=== PATIENT | male | born 1940 | race African-American/Black ===

== ENCOUNTER → 2016-10-26 | Outpatient (CLI) | payer OTHER ==
[~2016-10-26] VITALS: Ht 177.8 cm; Wt 100.7 kg
[~2016-10-26] MED LIST: ACYCLOVIR 400400 MG PO; ALLOPURINOL 10100 M1 PO; AMARYL1 MG PO; AMARYL2 MG PO; ASPIRIN81 M2 PO; CELECOXIB100 MG PO; CENTRUM SILVER1 EAC1 PO; CENTRUM SILVER1 EAC4 PO; COLACE 100 MG100 MG PO; CRESTOR10 MG PO; CYCLOPHOSPHAMIDE PO; DEXAMETHASONE 44 M1 PO; FLONASE 0.05%50 MCG NASAL; FOLIC ACID1 MG PO; HYDROCODONE; HYDROCODONE-APA1 TA1 PO; LISINOPRIL-HCT1 EAC1 PO; MECLIZINE HCL25 M1 PO; METHOTREXATE; NEURONTIN 300300 M1 PO; NORVASC 5 MG TAB5 MG PO; NORVASC10 MG PO; ONDANSETRON HCL4 M2 PO; PERCOCET 10-321 EACH PO; PRED FORTE 1% EY5 M1 OP; PREDNISONE; PREDNISONE 5 MG5 M1 PO; RHEUMATREX2.5 MG PO; SULFACETAMIDE 115 M1 OP; TRAMADOL 50 MG50 MG PO; ULTRA-LIGHT RO1 EACH MC; VALIUM5 MG PO; XARELTO10 MG PO; XIBROM5 ML OP; ZYMAR5 ML OP
--- NOTE | ~2016-10-26 | HPC ---
[facility] [place] [address] PAIN MANAGEMENT CONSULTATION Name: GRACIELA GRIFFITH Room #: REG KIRBY Knott.#: [id number] Admission: 10/26/16 Attend Phys: Ronni Hargrove MD Discharge: Date of : 38 Report #: [id number] THIS REPORT FOR: //name// CC: Callie Hargrove He was seen on 10/26/[address] Farhan Hargrove. PRIMARY CARE PHYSICIAN: Callie De M.D. FOLLOWUP COMPLAINT: Pain is better for the last 3 months, but now it started up again. FOLLOWUP HISTORY: The patient is a very pleasant 75-year-old gentleman who has been followed in the pain clinic because of lumbar radiculopathy. As you recall, he also has multiple myeloma. He states that his multiple myeloma is stable at this juncture. He has noted no increased bleeding problems of any nature. PHYSICAL EXAMINATION: Blood pressure 132/78, pulse 66, respiratory rate 16, room air saturation 100%. The patient has pain and discomfort in his low back with pain radiating down into the right leg. He rates it as a 5/10 at this juncture. It is more problematic with walking and standing. He notes some improvement when he sits down and rests. He has not fallen since we saw him last. His BMI is 31.9, weight is 100 kilograms. The patient has pain and discomfort as described above. RECOMMENDATIONS: We discussed treatment options with the patient. Risks and benefits of epidural steroid injection were again reviewed. Possible complications were discussed. The patient elects to proceed. PROCEDURE NOTE: The patient was placed in the prone position. Fluoroscopy was used to identify the L5-S1 interspace. This area had been sterilely prepped with Betadine and infiltrated with 0.25% bupivacaine. Total of 80 mg Depo-Medrol, 40 mg triamcinolone and 2 mL of 0.25% bupivacaine was injected. The patient tolerated the procedure well. There were no complications. We would like to thank you for letting us participate in his care. We hope he continues to do well. <ELECTRONICALLY SIGNED> By: Ronni Hargrove MD 11/20/16 1018 [id number] 1959 Ronni Hargrove MD /nt
[2016-10-26 09:06] VITALS: BP 132/78
== END ==
LOC: PAIN 07:01
DX: M54.16 Radiculopathy, lumbar region (principal); C90.00 Multiple myeloma not having achieved remission; I10 Essential (primary) hypertension

== ENCOUNTER → 2017-01-09 | Outpatient (CLI) | payer OTHER ==
[~2017-01-09] VITALS: Ht 177.8 cm; Wt 102.3 kg
[~2017-01-09] MED LIST changes: +ROSUVASTATIN CA20 MG PO
--- NOTE | ~2017-01-09 | HPC ---
[facility] [place] [address] PAIN MANAGEMENT CONSULTATION Name: GRACIELA GRIFFITH Room #: REG KIRBY Knott.#: [id number] Admission: 01/09/17 Attend Phys: Ronni Hargrove MD Discharge: Date of : 39 Report #: [id number] THIS REPORT FOR: //name// CC: Callie Hargrove DATE OF SERVICE: 01/09/2017 PRIMARY CARE PHYSICIAN: Callie De M.D. FOLLOWUP COMPLAINT: "The pain was greater than 50% after the last injection, but has returned". FOLLOWUP HISTORY: The patient is a 76-year-old gentleman who has been followed in the pain clinic because of lumbar radiculopathy. 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 He also has multiple myeloma. He states that his multiple myeloma is stable. He has pain which is radiating down into his left leg. It has limited in his ability to engage in activities of daily living. He has had no new falls. He denies any problems with his bowel or bladder function. He rates his pain as a 7/10. It involves both hips and radiates down into both hips. IMPRESSION: 1. Lumbar radiculopathy, improved with epidural steroid injections. 2. Multiple myeloma, stable per the patient's report. PHYSICAL EXAMINATION: VITAL SIGNS: Blood pressure 108/74, pulse 70, respiratory rate 20 and room air saturation 98%. Height 5 feet 10, weight 102 kilograms. BMI is 32. MUSCULOSKELETAL: He moves from the chair and walks to the procedure room in a slow rate with an antalgic gait. He complains of pain and discomfort in the lower portion of his back and buttocks bilaterally, with some pain down to the left leg. PROCEDURE NOTE: The patient was placed in the prone position. Fluoroscopy was used to identify the L5-S1 interspace. This area had been sterilely prepped with Betadine solution. A 0.25% bupivacaine was infiltrated into this area. A 17-gauge Tuohy with loss of resistance technique was used to gain access to the epidural space. There was no CSF, heme or paresthesia. Total of 80 mg Depo-Medrol, 40 mg triamcinolone and 2 mL of 0.25% bupivacaine was injected. The patient's pain decreased from 7 to 0 at the time of his discharge. He will follow up in the future as needed. [address] [address] PAIN MANAGEMENT CONSULTATION Name: GRACIELA GRIFFITH Room #: REG CLI [facility]#: [id number] Admission: 01/09/17 Attend Phys: Ronni Hargrove MD Discharge: Date of : 39 Report #: [id number] We would like to thank you for letting us participate in his care. We hope he continues to improve. By: [id number] Ronni Hargrove MD /nt
[2017-01-09 08:18] VITALS: BP 108/74
== END | disposition home or self-care (01) ==
LOC: PAIN 08:04
DX: M54.16 Radiculopathy, lumbar region (principal); C90.00 Multiple myeloma not having achieved remission

== ENCOUNTER 2017-03-07 10:06 | Emergency (ER) | payer OTHER ==
[~2017-03-07] VITALS: Ht 177.8 cm; Wt 113.4 kg
--- NOTE | ~2017-03-07 | EKG ---
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1940 Requested By: Trini Garcia Order Number: [id number] MD: Anderson Parikh Measurements Intervals [place] Rate: 68 P: 34 UT: 216 QRS: -23 QRSD: 85 T: 63 QT: 419 QTc: 446 Interpretive Statements Sinus rhythm Borderline prolonged UT interval Borderline left axis deviation Compared to ECG 05/28/2016 15:34:00 Atrial premature complex(es) no longer present Electronically Signed On 03-08-2017 7:56:59 CDT by Anderson Parikh [email or web address] <ELECTRONICALLY SIGNED> By: Anderson Parikh MD, [facility] 03/08/17 0756 [id number] [id number] Anderson Parikh MD, [facility] /EPI
[2017-03-07 10:52] LABS: HEMATOCRIT 42.9 % (42.0-52.0); HEMOGLOBIN 14.2 gm/dL (14.0-18.0); MCH 29.3 pg (26.0-34.0); MCHC 33.1 g/dL (28.0-37.0); MCV 88.5 fL (80.0-100.0); PLATELET COUNT 135 thou/uL (150-400); RBC 4.84 mil/uL (4.50-6.00); RDW 15.2 % (10.5-14.5); WBC 8.1 thou/uL (4.0-11.0)
[2017-03-07 10:58] LABS: MANUAL DIFF YES
[2017-03-07 11:02] LABS: ANION GAP 6 mmol/L (7-16); BUN 10 mg/dL (7-18); CALCIUM 9.3 mg/dL (8.5-10.1); CHLORIDE 109 mmol/L (98-107); CO2 25 mmol/L (21-32); CREATININE 1.2 mg/dL (0.7-1.3); GLUCOSE 97 mg/dL (74-106); POTASSIUM 4.1 mmol/L (3.5-5.1); SODIUM 140 mmol/L (136-145); TROPONIN-I < 0.04 ng/mL (<0.04-0.07)
[2017-03-07 11:15] LABS: ABSOLUTE NEUTROPHILS 3.6 thou/uL (1.4-8.2); TOTAL CELL COUNT 100
[2017-03-07 11:16] LABS: ANISOCYTOSIS 1+
[2017-03-07 12:35] VITALS: BP 128/71
== END 2017-03-07 12:36 | disposition home or self-care (01) ==
LOC: ER 10:06
PROVIDERS: Emergency Medicine
DX: S16.1XXA Strain of muscle, fascia and tendon at neck level, initial encounter (principal); I10 Essential (primary) hypertension; E11.9 Type 2 diabetes mellitus without complications; E78.00 Pure hypercholesterolemia, unspecified; M06.9 Rheumatoid arthritis, unspecified; Z90.79 Acquired absence of other genital organ(s); Z85.46 Personal history of malignant neoplasm of prostate; Z86.73 Personal history of transient ischemic attack (TIA), and cerebral infarction without residual deficits; Z85.79 Personal history of other malignant neoplasms of lymphoid, hematopoietic and related tissues; Z88.8 Allergy status to other drugs, medicaments and biological substances; Z91.041 Radiographic dye allergy status; X58.XXXA Exposure to other specified factors, initial encounter; Y93.89 Activity, other specified; Y92.89 Other specified places as the place of occurrence of the external cause; Y99.9 Unspecified external cause status

== ENCOUNTER → 2017-04-24 | Outpatient (CLI) | payer OTHER ==
[~2017-04-24] VITALS: Ht 177.8 cm; Wt 100.2 kg
[2017-04-24 08:10] VITALS: BP 126/63
== END | disposition home or self-care (01) ==
LOC: PAIN 07:17
DX: M54.16 Radiculopathy, lumbar region (principal); C90.00 Multiple myeloma not having achieved remission; G89.29 Other chronic pain; Z96.659 Presence of unspecified artificial knee joint; Z88.8 Allergy status to other drugs, medicaments and biological substances; Z79.82 Long term (current) use of aspirin; Z79.899 Other long term (current) drug therapy; Z98.890 Other specified postprocedural states

== ENCOUNTER → 2017-05-01 | Outpatient (CLI) | payer OTHER | LOC: RAD 08:44 | DX: C90.00 Multiple myeloma not having achieved remission (principal) ==

== ENCOUNTER → 2017-07-31 | Outpatient (CLI) | payer OTHER ==
[~2017-07-31] VITALS: Ht 170.2 cm; Wt 101.4 kg
[~2017-07-31] MED LIST changes: +DEXAMETHASONE PO; +RESTASIS1 EACH OPHTHALMIC; +REVLIMID25 MG PO; +[UNRECOGNIZED DRUG - OTHER] PO
--- NOTE | ~2017-07-31 | HPC ---
[facility] [place] [address] PAIN MANAGEMENT CONSULTATION Name: GRACIELA GRIFFITH Room #: REG KIRBY EucedaRonKendraRon#: [id number] Admission: 07/31/17 Attend Phys: Ronni Hargrove MD Discharge: Date of : 39 Report #: [id number] THIS REPORT FOR: //name// CC: Callie Hargrove DATE OF SERVICE: 07/31/2017 FOLLOWUP COMPLAINT: "The pain was doing pretty well, but it got worse and is going down into both legs and in the right calf." FOLLOWUP HISTORY: The patient is a 76-year-old gentleman who has been seen in the pain clinic because of lumbar radiculopathy. He has undergone epidural steroid injections. As you recall, he suffers from multiple myeloma. He states that his platelet number was a little low. His count has returned and he has come to the pain clinic for another epidural steroid injection. Overall, he still continues to find significant benefit from these procedures and would like to proceed. Risks and benefits of an epidural steroid injection were again reviewed. Possible complications, which include bleeding, increased muscle soreness, headaches, paresis, muscle trauma, and nerve trauma were discussed. The patient states that his platelets have been deemed adequate, so we will proceed with an epidural steroid injection. IMPRESSION: 1. Lumbar radiculopathy, which improves with epidural steroid injection. 2. Multiple myeloma. At a period of time, his platelets were decreased but now they have stabilized per the patient's report. RECOMMENDATIONS: We will proceed with an epidural steroid injection. PROCEDURE NOTE: The patient was placed in the prone position. Fluoroscopy was used to identify the L5-S1 interspace. This area had been sterilely prepped with Betadine and infiltrated with 0.25% bupivacaine. A total of 80 mg Depo-Medrol, 40 mg triamcinolone and 2 mL of 0.25% bupivacaine was injected. The patient tolerated the procedure well. There were no complications. He remained in the pain clinic for an appropriate amount of time. His pain decreased from a 6 to 0 at the time of discharge. We would like to thank you for letting us participate in his care. We hope he continues to improve. By: [id number] Ronni Hargrove MD /TANIYA
[2017-07-31 09:59] VITALS: BP 119/69
== END | disposition home or self-care (01) ==
LOC: PAIN 07-17 10:59
DX: M54.16 Radiculopathy, lumbar region (principal); G89.29 Other chronic pain; C90.00 Multiple myeloma not having achieved remission; Z96.651 Presence of right artificial knee joint; Z98.890 Other specified postprocedural states; Z88.1 Allergy status to other antibiotic agents; Z79.82 Long term (current) use of aspirin; Z79.899 Other long term (current) drug therapy; Z91.041 Radiographic dye allergy status

== ENCOUNTER → 2017-10-23 | Outpatient (CLI) | payer OTHER ==
[~2017-10-23] VITALS: Ht 177.8 cm; Wt 100.7 kg
--- NOTE | ~2017-10-23 | HPC ---
[facility] [place] [address] [address] [address] PAIN MANAGEMENT CONSULTATION Name: GRACIELA GRIFFITH Room #: REG KIRBY Kristin#: [id number] Admission: 10/23/17 Attend Phys: Ronni Hargrove MD Discharge: Date of : 39 Report #: [id number] THIS REPORT FOR: //name// CC: Callie Hargrove DATE OF SERVICE: 10/23/2017 FOLLOWUP COMPLAINT: "I have finished my chemotherapy and would like to get another injection." FOLLOWUP HISTORY: The patient is a very pleasant 76-year-old gentleman who has been followed in the pain clinic because of lumbar radiculopathy. He has undergone epidural steroid injections over the years. He finds that these have been quite helpful. He states that he underwent some chemotherapy since we saw him last. He did note some worsening of his pain. He had some difficulty walking and could not walk further than a few car length. At this juncture, he has noted that since his chemotherapy is completed he is having less pain, he is able to do more activities, but feels that another epidural steroid injection would be beneficial. After he gets the injections, he notes that his pain improved significantly. He is able to engage in activities with a lot less discomfort. He rates his pain as a 5/8 at this juncture. He is having pain in his lower back down into both hips and as you recall has undergone lumbar surgery in the past. ALLERGIES: LIPITOR, IODINE. PHYSICAL EXAMINATION: VITAL SIGNS: Blood pressure 133/94, pulse 78, respiratory rate 14, room air saturation 97%. Height 5 feet 10 inches, weight 222 pounds, BMI 31. The patient has not fallen since we saw him last. HEENT: Eyes are nonicteric. Extraocular muscles intact. NECK: Good range of motion, no JVD. HEART: Regular rate. ABDOMEN: Nontender. BACK: The patient stands with a slight forward lean. No step-off changes are noted in the back area. No paravertebral discomfort. EXTREMITIES: The patient notes pain and discomfort radiating down the lower portion of his back and into both hips bilaterally. It is in the L5-S1 lumbar distribution. Muscle strength is judged to be 5/5 for the major muscle groups of the lower extremity. The patient denies any bleeding episodes or problems with increased bleeding since his multiple myeloma treatment. CURRENT MEDICATIONS: Restasis ophthalmic drops, Ultram 50 mg q.6 hours p.r.n., aspirin 81 mg, rosuvastatin 20 mg, Norvasc 10 mg, allopurinol 100 mg, [place] [address] PAIN MANAGEMENT CONSULTATION Name: GRACIELA GRIFFITH Room #: REG [facility] Kristin#: [id number] Admission: 10/23/17 Attend Phys: Ronni Hargrove MD Discharge: Date of : 39 Report #: [id number] lisinopril/hydrochlorothiazide 20/12.5 daily. IMPRESSION: 1. Lumbar radiculopathy which improves with epidural steroid injections. 2. Multiple myeloma. The patient is recovering from a multiple myeloma treatment. Notes that his energy is increasing as well as his activity level is beginning to increase. He is feeling better at this juncture. Rates his pain as a 5/6. RECOMMENDATIONS: We discussed treatment options with the patient. Risks and benefits of an epidural steroid injection were discussed. Possible complications were reviewed. The patient elects to proceed. Complications include but are not limited to infection, increased muscle soreness, headache, bleeding, nerve damage, spinal headache, he would like to proceed. PROCEDURE NOTE: The patient was placed in the prone position. His back was sterilely prepped with a chlorhexidine solution. His L5-S1 area was identified using fluoroscopy using anterior-posterior and lateral viewing. After this area was infiltrated with 0.25% bupivacaine, a 17-gauge Tuohy with loss of resistance technique was used to gain access to the epidural space. There was no CSF, heme or paresthesia. After appropriate placement was noted, a total of 80 mg Depo-Medrol, 40 mg triamcinolone and 2 mL of 0.25% bupivacaine was injected. The patient tolerated the procedure well. The site was observed. There was no bleeding. A Band-Aid was placed. He was then taken to the recovery room where he remained for an appropriate amount of time. He will follow up in the future as needed. He will call us if he has any problems with his medications. We would like to thank you for letting us participate in his care. We hope he continues to improve. <ELECTRONICALLY SIGNED> By: Ronni Hargrove MD 11/15/17 1332 1258 11 Ronni Hargrove MD /TANIYA
[2017-10-23 09:22] VITALS: BP 131/94
== END | disposition home or self-care (01) ==
LOC: PAIN 06:54
DX: M54.16 Radiculopathy, lumbar region (principal); C90.00 Multiple myeloma not having achieved remission; Z79.82 Long term (current) use of aspirin; Z79.899 Other long term (current) drug therapy; Z88.8 Allergy status to other drugs, medicaments and biological substances; Z91.041 Radiographic dye allergy status; G89.29 Other chronic pain

== ENCOUNTER → 2018-04-18 | Outpatient (CLI) | payer OTHER ==
[~2018-04-18] VITALS: Ht 177.8 cm; Wt 95.7 kg
--- NOTE | ~2018-04-18 | HPC ---
[facility] [address] [address] PAIN MANAGEMENT CONSULTATION Name: GRACIELA GRIFFITH Room #: REG KIRBY EucedaRonKendra.#: [id number] Admission: 04/18/18 Attend Phys: Ronni Hargrove MD Discharge: Date of : 39 Report #: [id number] THIS REPORT FOR: //name// CC: Callie Hargrove DATE OF SERVICE: 04/18/2018 FOLLOWUP COMPLAINT: "Things are going pretty good with multiple myeloma. I noticed that my pain has returned in the back and shooting down into my leg." FOLLOWUP HISTORY: The patient is a very pleasant 77-year-old gentleman who has been followed in the pain clinic. As you recall, he has undergone a number of epidural steroid injection in the past. Notes that it is greater than 2 months of pain relief after the last injection. At this juncture, he has noted some return of pain. He is less active. States that he watches his car sitting on a rolling chair like item. Continues to have pain, which is problematic. Has some problems with getting comfortable. Denies any change in his bowel or bladder dysfunction. Has not noticed any increased bleeding problems. States that he has followed up with his primary and that his multiple myeloma is going reasonably well. He would like to proceed with an epidural steroid injection and gleaned benefit from this at this juncture. ALLERGIES: LIPITOR, IODINE. MEDICATIONS: Ophthalmic drops, Restasis into each eye b.i.d., tramadol 50 mg q.6 hours p.r.n., aspirin 81 mg, rosuvastatin 20 mg daily, amlodipine 10 mg, allopurinol 100 mg, lisinopril/hydrochlorothiazide 20/12.5. PAIN CLINIC ASSESSMENT: 1. 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 The patient is not being treated for rheumatoid arthritis. 2. Height 5 feet 10 inches, weight 211 pounds, BMI is 30. 3. Vital signs: Blood pressure 141/73, pulse 69, respiratory rate 16, room air saturations 100%. 4. Pain intensity: 10. 5. Fall risk. The patient has not fallen in the last 3 months. 6. Blood thinning. The patient is not on a blood thinning medication. 7. History of hypertension. The patient is being treated for hypertension. 8. Opioid therapy greater than 6 weeks. The patient is using tramadol to help with his pain control. 9. Risk assessment tool: The patient has low score in regards to use of opioid medication. 10. Functional assessment tool. 11. Recreational drug use. The patient denies use of tobacco. 12. Alcohol use. The patient denies use of alcoholic beverages. Recreational [address] [address] PAIN MANAGEMENT CONSULTATION Name: GRACIELA GRIFFITH Room #: REG CLI OkKendra.#: [id number] Admission: 04/18/18 Attend Phys: Ronni Hargrove MD Discharge: Date of : 39 Report #: [id number] drug use, the patient denies. PHYSICAL EXAMINATION: GENERAL: The patient is a well-developed, well-nourished black male. He appears his stated age. He is alert and oriented x 3. HEENT: The patient has some redness in the sclerae of his eyes. Has good hearing, wears a hearing aid. Mucous membranes are moist. Head is atraumatic. NECK: Without JVD or adenopathy. Good range of motion. HEART: Regular rate. S1, S2. ABDOMEN: Nontender. BACK: The patient stands and leans slightly forward when walking. No step-off changes are noted in the back area or paravertebral area. Muscle strength in the upper extremity is judged to be 5/5 for the major muscle groups without neurologic changes. Muscle bulk is symmetrical. The patient has pain and discomfort in his lower back with pain radiating down to the left leg in the L5-S1 nerve root distribution. He has muscle strength which is generally felt to be 5/5 for the lower muscles area. Has noted no increased bleeding in regard to his multiple myeloma. IMPRESSION: 1. Lumbar radiculopathy in the L5-S1 area. 2. History of multiple myeloma. 3. History of hypertension. 4. Status post chemotherapy for multiple myeloma. 5. Left hip replacement. RECOMMENDATIONS: We discussed treatment options with the patient. Risks and benefits of an epidural steroid injection were again reviewed. Possible complications were discussed. They include but are not limited to infection, increased muscle soreness, headache, bleeding, worsening of pain, no improvement in pain, paralysis, weakness as a result of the procedure, spinal headache. The patient elects to proceed. PROCEDURE NOTE: The patient was taken to the procedure room. He was assisted in getting on the examination table. He was placed in the prone position. Fluoroscopy using anterior, posterior as well as lateral imaging were used to place the injection. The L5-S1 area on the left was identified. A left paraspinous approach was used. A 0.25% bupivacaine was infiltrated into this area. A 17-gauge Tuohy with loss of resistance technique was used to gain access to the epidural space. There was no CSF, heme or paresthesia. Total of 80 mg Depo-Medrol, 40 mg triamcinolone and 2 mL of 0.25% bupivacaine was injected. The patient tolerated the procedure well. There were no complications. A total of 8 seconds fluoroscopy time was used. The patient's pain decreased from 4 to 2 at the time of discharge. He will follow up in the [facility] [address] [place] [address] PAIN MANAGEMENT CONSULTATION Name: GRACIELA GRIFFITH Room #: REG [facility].#: [id number] Admission: 04/18/18 Attend Phys: Ronni Hargrove MD Discharge: Date of : 38 Report #: [id number] future as needed. We would like to thank you for letting us participate in his care. We hope he continues to improve. By: [id number] Ronni Hargrove MD /nt
[2018-04-18 13:08] VITALS: BP 141/73
== END | disposition home or self-care (01) ==
LOC: PAIN 07:01
DX: M54.16 Radiculopathy, lumbar region (principal); G89.29 Other chronic pain; I10 Essential (primary) hypertension; Z85.79 Personal history of other malignant neoplasms of lymphoid, hematopoietic and related tissues; Z96.642 Presence of left artificial hip joint; Z91.041 Radiographic dye allergy status; Z88.8 Allergy status to other drugs, medicaments and biological substances; Z79.899 Other long term (current) drug therapy

== ENCOUNTER → 2018-09-24 | Outpatient (CLI) | payer OTHER ==
[~2018-09-24] VITALS: Ht 177.8 cm; Wt 97.3 kg
[~2018-09-24] MED LIST changes: +ACYCLOVIR 800800 MG PO; +ASA5UEC PO; +BACTRIM DS TAB1 EACH PO; +DEXAMETHASONE4 MG PO; +REVLIMID15 MG PO; +UNICOMPLEX M TA1 TA1 PO
[2018-09-24 09:16] VITALS: BP 118/57
== END | disposition home or self-care (01) ==
LOC: PAIN 09:02
DX: M54.16 Radiculopathy, lumbar region (principal); Z88.8 Allergy status to other drugs, medicaments and biological substances; Z79.82 Long term (current) use of aspirin; Z79.899 Other long term (current) drug therapy

== ENCOUNTER → 2018-12-05 | Outpatient (CLI) | payer OTHER ==
[~2018-12-05] VITALS: Ht 177.8 cm; Wt 92.1 kg
[~2018-12-05] MED LIST changes: +MEDROLDOSEPACK PO
--- NOTE | ~2018-12-05 | HPC ---
[facility] [address] [place] [address] PAIN MANAGEMENT CONSULTATION Name: GRACIELA GRIFFITH Room #: REG KIRBY KnottRon#: [id number] Admission: 12/05/18 ������������������ Attend Phys: Ronni Hargrove MD Discharge: ������������������ Date of : 39 Report #: [id number] THIS REPORT FOR: //name// CC: Callie Hargrove DATE OF SERVICE: 12/23/2018 CHIEF COMPLAINT: Pain in the left and right low back area down into the legs. HISTORY: The patient is a 78-year-old gentleman who has been followed in the Pain Clinic. He has a history of lumbar radiculopathy. He has had back surgery in the past. He has undergone midline injections at the L5-S1 area to help decrease pain and discomfort, which he has been experiencing in his low back and into his left leg. He returns today indicating that his pain has changed somewhat. He is experiencing pain in the left as well as the right leg in the L4-L5 dermatomal distribution bilaterally. Notes some low back discomfort as well. Rates it as a 5-6/10. There is aching sensation that is exacerbated when he is walking, standing and improves somewhat when he is sitting and at rest. Past injections have been beneficial and he has returned today with the desire to undergo an epidural steroid injection to help quell and decrease the amount of pain and discomfort he is experiencing. ALLERGIES: LIPITOR, IODINE. MEDICATIONS: Ophthalmic drops, Restasis to each eye bilaterally, tramadol 50 mg q. 6 hours, aspirin 81 mg, rosuvastatin 20 mg daily, amlodipine 10 mg and allopurinol 100 mg, lisinopril/hydrochlorothiazide 20/12.5. PAIN CLINIC ASSESSMENT/PQRS: 1. Osteoarthritis. 2. The patient has had a right total hip replacement in 05/2017. He is not being treated for rheumatoid arthritis. 3. Height 5 feet 10 inches, weight 203 pounds, BMI is 29.1. 4. Vital signs: Blood pressure 114/67, pulse 79, respiratory rate 16, room air saturation 100%. 5. Pain intensity 5/6 out of 10. 6. Fall risk. The patient has not fallen in the last 3 months. 7. Blood thinner. The patient is not on a blood thinning medication. 8. Hypertension. The patient is not being treated for hypertension. 9. Opioids greater than 6 weeks, the patient receives his medications from his primary physician. 10. Risk assessment tool, low for opioid use. 11. Functional assessment tool. 12. Recreational drug use. The patient denies use of recreational drugs. 13. Tobacco: The patient denies use of tobacco. [address] [address] PAIN MANAGEMENT CONSULTATION Name: GRACIELA GRIFFITH [id number] Admission: 12/05/18 ������������������ Attend Phys: Ronni Hargrove MD Discharge: ������������������ Date of : 39 Report #: [id number] 14. Alcohol: The patient denies use of alcoholic beverages. PHYSICAL EXAMINATION: GENERAL: The patient is a well-developed, well-nourished black gentleman. His affect is appropriate. Speech is fluent. HEENT: Normocephalic, atraumatic. Extraocular eye muscles intact. Sclerae nonicteric. Mucous membranes are moist. NECK: Without adenopathy or JVD. The patient has slight reddening near the sclerae in his eyes. NECK: Without JVD or adenopathy. Good range of motion. HEART: Regular rate. S1, S2. ABDOMEN: Nontender. BACK: The patient stands leaning forward. Complains of pain and discomfort in the lower portion of his back. Notes worsening of pain after prolonged standing and walking. Notes pain is radiating down into the left as well as a right leg instead of just the left. In the past, the patient has radiated down the L5-S1 dermatomal distribution. Today it is in the L4-L5 dermatomal distribution on the left and the right. Muscle strength generally 5-/5 for the major muscle groups in the lower extremity. No increase in bleeding since we saw him last. Has multiple myeloma history. IMPRESSION: 1. Lumbar radiculopathy, L4-L5 bilaterally. 2. History of multiple myeloma. 3. History of hypertension. 4. Status post chemotherapy and for multiple myeloma. 5. Right hip replacement. RECOMMENDATIONS: We discussed treatment options with the patient. Risks and benefits of a transforaminal epidural steroid injection were discussed with the patient. He has had back surgery in the past. A midline approach is more risky. We will proceed with a transforaminal approach at the left as well as the right L4-L5 dermatomal distribution. The patient elects to proceed. Risks which could include but are not limited to infection, worsening of pain, no improvement in pain, nerve damage, bleeding were discussed and the patient elects to proceed. PROCEDURE NOTE: The patient was taken to the procedure area. He was assisted in getting on the examination table. A pillow was placed under his abdomen to bolster and improve positioning. Fluoroscopy using anterior, posterior as well as lateral viewing were implemented. The patient's back was sterilely prepped with a chlorhexidine solution and allowed to dry. A 25-gauge needle was then used to anesthetize the left as well as the right L4-L5 paraspinous approach. Fluoroscopy using left and right lateral viewing were implemented to place the 20 gauge spinal needle on the left at the L4-L5 dermatomal distribution as well as the right L4-L5 dermatomal distribution. Aspiration was negative. A total [facility] [address] [place] [address] PAIN MANAGEMENT CONSULTATION Name: GRACIELA GRIFFITH [facility] [id number] Admission: 12/05/18 ������������������ Attend Phys: Ronni Hargrove MD Discharge: ������������������ Date of : 39 Report #: [id number] of 80 mg Depo-Medrol with 2 mL of 0.25% bupivacaine infiltrated in this area was undertaken. The patient tolerated the procedure well. There were no complications. The patient's pain decreased to 0 at the time of discharge. He will follow up in the future as needed. We would like to thank you for letting us participate in his care. We hope he continues to improve. ��������������������������������������������� ���������������������������������������� By: ��������������������������������������������� [id number] Ronni Hargrove MD /nt
[2018-12-05 09:15] VITALS: BP 114/67
--- NOTE | 2018-12-05 09:41 | NUR ---
Pain Clinic Assessment: 1. History of Osteoarthritis: 05/18/17 RIGHT TKR SPINE History of Rheumatoid Arthritis: 2. Height: 5 ft. 10 in. 177.8 cm. Weight: 203.0 lb. oz. 92.080 kg. Patient's BMI: 29.1 3. Vital Signs: BP: 114/67 Pulse: 79 Resp: 16 Temp: 02 Sat: 100 ECG Mon: 4. Pain Intensity: 5-6 5. Fall Risk: Dizziness: N Needs help standing or walking: N Fallen in the last 3 months: N Fall risk comments: 6. Patient on Blood Thinner: None 7. History of Hypertension: Y 8. Opioid Therapy greater than 6 weeks: N Opiate Contract Signed: 9. Risk Assessment Tool Provided: 10. Functional Assessment Tool: 11. Recreational Drug Use: Never Drug Type: Tobacco Use: Never Smoker Tobacco Type: Amount or Packs/day: How Many Years: Alcohol Use: No Frequency: Quant:
== END | disposition home or self-care (01) ==
LOC: PAIN 07:19
DX: M54.16 Radiculopathy, lumbar region (principal); G89.29 Other chronic pain; I10 Essential (primary) hypertension; Z85.79 Personal history of other malignant neoplasms of lymphoid, hematopoietic and related tissues; Z96.641 Presence of right artificial hip joint; Z98.890 Other specified postprocedural states; Z79.899 Other long term (current) drug therapy; Z91.041 Radiographic dye allergy status; Z88.8 Allergy status to other drugs, medicaments and biological substances; Z96.651 Presence of right artificial knee joint

== ENCOUNTER → 2018-12-19 | Outpatient (CLI) | payer OTHER ==
[~2018-12-19] VITALS: Ht 177.8 cm; Wt 89.0 kg
--- NOTE | ~2018-12-19 | HPC ---
[facility] [address] [place] [address] PAIN MANAGEMENT CONSULTATION Name: GRACIELA GRIFFITH Room #: REG KIRBY Knott.#: [id number] Admission: 12/19/18 ������������������ Attend Phys: Ronni Hargrove MD Discharge: ������������������ Date of : 39 Report #: [id number] THIS REPORT FOR: //name// CC: Callie Hargrove DATE OF SERVICE: 12/19/2018 PRIMARY CARE PHYSICIAN: Callie De MD CHIEF COMPLAINT: Pain in the legs, which feel heavy. HISTORY OF PRESENT ILLNESS: The patient is a very pleasant 78-year-old who has been followed in the pain clinic in the past because of chronic low back pain. He has undergone epidural steroid injections. They generally have been quite beneficial. As you may recall, he suffers from multiple myeloma. States that things are going reasonably well from that point of view. He has not noticed any excessive bleeding. Return to the pain clinic today with complaints of some pain in the legs. States that the low back pain after the last injection improved, but continues to have some pain and has a perception of some weakness in his lower extremities. He has returned today with the desire to undergo treatment. The patient underwent transforaminal epidural steroid injections at the left and right L4-L5 dermatomal distribution on 12/05/2018. Again, this decreased his pain and discomfort, but continues to have some discomfort with weakness perception in his legs. ALLERGIES: LIPITOR, IODINE. CURRENT MEDICATIONS: Ophthalmic drops, Restasis in each eye bilaterally, tramadol 50 mg q.6 hours p.r.n., aspirin 81 mg, rosuvastatin 20 mg daily, amlodipine 10 mg, allopurinol 100 mg, lisinopril/hydrochlorothiazide 20/12.5. PAIN CLINIC ASSESSMENT AND PQRS: 1. History of osteoarthritis. The patient has some arthritic changes and has had right total hip replacement. The patient is not being treated for rheumatoid arthritis. 2. Height 5 feet 10 inches, weight 196 pounds, BMI is 28.2. 3. Pain intensity 1 while sitting, 6 while walking. 4. Vital Signs: Blood pressure 128/58, pulse 60, respiratory rate 14, room air saturation 100%. 5. Fall risk. The patient has not fallen in the last 3 months. 6. Blood thinner. The patient is not on a blood thinning medication. 7. Hypertension. The patient is being treated for hypertension. 8. Opioids greater than 6 weeks. 9. [place] [address] PAIN MANAGEMENT CONSULTATION Name: GRACIELA GRIFFITH Room #: REG [facility]#: [id number] Admission: 12/19/18 ������������������ Attend Phys: Ronni Hargrove MD Discharge: ������������������ Date of : 39 Report #: [id number] 10. Functional assessment tool. 11. Recreational drug use. The patient denies use of recreational drugs. 12. Tobacco: The patient has never smoked. 13. Alcohol: The patient denies frequent use of alcoholic beverages. PHYSICAL EXAMINATION: GENERAL: The patient is a very pleasant, well-nourished, black male. Appears his stated age. He is alert and oriented x 3. His affect is appropriate. Speech is fluent. HEENT: Normocephalic, atraumatic. Extraocular eye muscles intact. Sclerae are nonicteric. There is some redness. Mucous membranes are moist. Head is atraumatic. NECK: Without JVD or adenopathy. Good range of motion. HEART: Regular rate. S1, S2. ABDOMEN: Nontender. Bowel sounds present. BACK: The patient stands with a slightly forward lean while walking. No step-offs are noted in the back area or paravertebral area. Muscle strength in the lower extremities judged to be 5- for the major muscle groups in the lower extremity. The patient has a perception of some weakness in the lower extremities. IMPRESSION: 1. History of lumbar radiculopathy in the L5-S1 dermatomal area, improved after transforaminal epidural steroid injections on 12/05/2018. 2. History of multiple myeloma. 3. History of hypertension. 4. Status post chemotherapy for multiple myeloma. 5. Right total hip replacement on 05/18/2017. 6. Cholecystectomy. RECOMMENDATIONS: We discussed treatment options with the patient. At this juncture, he has recently undergone an injection with steroids. At this point, we will try a Medrol Dosepak. A script for this medication has been provided with the patient. He will also call us if his pain continues to be problematic. We will consider changes to his medications. We would like to thank you for letting us participate in his care. We hope he continues to improve. ��������������������������������������������� ���������������������������������������� By: ��������������������������������������������� [id number] Ronni Hargrove MD /TANIYA
[2018-12-19 13:14] VITALS: BP 128/58
--- NOTE | 2018-12-19 13:37 | NUR ---
Pain Clinic Assessment: 1. History of Osteoarthritis: 05/18/17 RIGHT TKR SPINE History of Rheumatoid Arthritis: 2. Height: 5 ft. 10 in. 177.8 cm. Weight: 196.2 lb. oz. 88.996 kg. Patient's BMI: 28.2 3. Vital Signs: BP: 128/58 Pulse: 60 Resp: 14 Temp: 02 Sat: 100 ECG Mon: 4. Pain Intensity: 1 SITTING 6 WALKING 5. Fall Risk: Dizziness: Y Needs help standing or walking: N Fallen in the last 3 months: N Fall risk comments: 6. Patient on Blood Thinner: None 7. History of Hypertension: Y 8. Opioid Therapy greater than 6 weeks: N Opiate Contract Signed: 9. Risk Assessment Tool Provided: 10. Functional Assessment Tool: 11. Recreational Drug Use: Never Drug Type: Tobacco Use: Never Smoker Tobacco Type: Amount or Packs/day: How Many Years: Alcohol Use: No Frequency: Quant:
== END ==
LOC: PAIN 06:47
DX: M79.604 Pain in right leg (principal); M79.605 Pain in left leg; M54.5 Low back pain; G89.29 Other chronic pain; I10 Essential (primary) hypertension; Z88.8 Allergy status to other drugs, medicaments and biological substances; Z79.899 Other long term (current) drug therapy; Z96.641 Presence of right artificial hip joint; Z90.49 Acquired absence of other specified parts of digestive tract; Z79.891 Long term (current) use of opiate analgesic

== ENCOUNTER → 2019-02-25 | Outpatient (CLI) | payer OTHER ==
[~2019-02-25] VITALS: Ht 177.8 cm; Wt 89.4 kg
--- NOTE | ~2019-02-25 | HPC ---
[facility] [place] [address] PAIN MANAGEMENT CONSULTATION Name: GRACIELA GRIFFITH Room #: REG KIRBY Nikos.#: [id number] Admission: 02/25/19 ������������������ Attend Phys: Ronni Hargrove MD Discharge: ������������������ Date of : 39 Report #: [id number] THIS REPORT FOR: //name// CC: Callie Hargrove DATE OF SERVICE: 02/25/2019 CHIEF COMPLAINT: "I am having pain down in my back like I did before I had the surgery." HISTORY OF PRESENT ILLNESS: The patient is a very pleasant 78-year-old gentleman who has been followed in the Pain Clinic. He has chronic lumbar pain. He has undergone lumbar surgery. This was because of spinal stenosis. He is still having pain, which is quite problematic. He underwent a transforaminal epidural steroid injection at the L4-L5 areas on the left and right at the last visit. He feels that pain has quieted down. He is having pain that is radiating down in the posterior portion of his legs and in the past epidural steroid injections have been beneficial. He would like to proceed today with another injection in the affected area of L5-S1. He is not experiencing any excessive bleeding. As you may recall, he suffers from multiple myeloma. At this juncture, he is reasonably stable. ALLERGIES: LIPITOR, IODINE. CURRENT MEDICATIONS: Ophthalmic drops, Restasis each eye bilaterally, tramadol 50 mg q. 6 hours p.r.n., aspirin 81 mg, rosuvastatin 20 mg, amlodipine 10 mg, allopurinol 100 mg, lisinopril/hydrochlorothiazide 20/12.5. PAIN CLINIC ASSESSMENT/PQRS: 1. History of osteoarthritis. The patient has some arthritic changes in his right hip. He has had a right hip replacement. He is not being treated for rheumatoid arthritis. 2. Height 5 feet 10 inches, weight 197 pounds, BMI is 28.3. 3. Vital Signs: Blood pressure 126/65, pulse 66, respiratory rate 16, room air saturation 100%. 4. Pain intensity 11/23. 5. Fall risk. The patient has not fallen in the last 3 months. 6. Blood Thinner. The patient is not on a blood thinning medication. 7. Hypertension. The patient is being treated for hypertension. 8. Opioids greater than 6 weeks. 9. Risk assessment tool, low for opioid use. 10. Functional assessment tool, . 11. Recreational drug use. The patient denies use of recreational drugs. 12. Tobacco: The patient has never smoked. 13. Alcohol: The patient denies use of alcoholic beverages. [address] [address] PAIN MANAGEMENT CONSULTATION Name: GRACIELA GRIFFITH [facility] [id number] Admission: 02/25/19 ������������������ Attend Phys: Ronni Hargrove MD Discharge: ������������������ Date of : 39 Report #: [id number] PHYSICAL EXAMINATION: GENERAL: The patient is a well-developed, well-nourished black male, appears his stated age. He is alert and oriented x 3. His affect is appropriate. Speech is fluent. HEENT: Normocephalic, atraumatic. Extraocular eye muscles intact. Sclerae slight redness in the sclera area. Mucous membranes are moist. Head is atraumatic. NECK: Without JVD or adenopathy. Good range of motion. HEART: Regular rate. S1, S2. LUNGS: Clear to auscultation. ABDOMEN: Nontender. Bowel sounds present. BACK: The patient walks in a slightly forward leaning walk. No step-offs are noted. A well-healed area in the lumbar area of his back, status post low back surgery. The patient complains of pain and discomfort radiating down the L4-L5 dermatomal distribution of his legs. The patient has a perception of heaviness in his legs. Pain intensity is 1 while sitting, rise to a level 6 when walking. IMPRESSION: 1. History of lumbar radiculopathy in the L4-L5 dermatomal area improved after epidural steroid injections in the past. The patient would like to proceed with another L4-L5 injection. 2. History of multiple myeloma. 3. History of hypertension. 4. Status post chemotherapy for multiple myeloma. 5. Right total hip replacement 05/18/2017. 6. Cholecystectomy. RECOMMENDATIONS: We discussed treatment options with the patient. Risks and benefits of an epidural steroid injection were again reviewed. Possible complications of the procedure were discussed. They include but are not limited to infection, worsening of pain, no improvement in pain. Overall, the patient feels that his back continues to be problematic. He is not sure that has gained significant improvement since his back surgery. He is having pain that is radiating down into both legs. In the past, epidural steroid injections in the L5-S1 area were beneficial and he would like to proceed with this today. He has had no complication from the previous injections. These were performed at the L4-L5 area on the left and the right. Pain in the L4-L5 area has improved since that injection at the last visit. He would like to proceed with another injection and is aware of the possible complications. PROCEDURE NOTE: The patient was taken to the procedure area. He was then assisted in getting on the examination table. His back was sterilely prepped with a Betadine swabbing. A pillow was placed under his abdomen to improve positioning. Fluoroscopy with anterior and posterior as well as lateral viewing were implemented. A 17-gauge Tuohy with loss of resistance technique was used [facility] [address] [place] [address] PAIN MANAGEMENT CONSULTATION Name: GRACIELA GRIFFITH Room #: REG [facility].#: [id number] Admission: 02/25/19 ������������������ Attend Phys: Ronni Hargrove MD Discharge: ������������������ Date of : 39 Report #: [id number] to gain access to the L5-S1 area using a midline approach. There was no CSF, heme or paresthesia. A total of 80 mg Depo-Medrol, 40 mg triamcinolone and 2 mL of 0.25% bupivacaine was then injected. The patient tolerated the procedure well. A total of 11 seconds fluoroscopy time was provided. The patient's pain decreased to 0 at the time of discharge. We hope that he continues to improve. He will call us if he has any concerns. We would like to thank you for letting us participate in his care. We hope he continues to improve. ��������������������������������������������� ���������������������������������������� By: ��������������������������������������������� [id number] Ronni Hargrove MD /zully
[2019-02-25 12:42] VITALS: BP 126/65
--- NOTE | 2019-02-25 12:47 | NUR ---
Pain Clinic Assessment: 1. History of Osteoarthritis: 05/18/17 RIGHT TKR SPINE History of Rheumatoid Arthritis: 2. Height: 5 ft. 10 in. 177.8 cm. Weight: 197.2 lb. oz. 89.449 kg. Patient's BMI: 28.3 3. Vital Signs: BP: 126/65 Pulse: 66 Resp: 16 Temp: 02 Sat: 100 ECG Mon: 4. Pain Intensity: 2 5. Fall Risk: Dizziness: N Needs help standing or walking: N Fallen in the last 3 months: N Fall risk comments: 6. Patient on Blood Thinner: None 7. History of Hypertension: Y 8. Opioid Therapy greater than 6 weeks: N Opiate Contract Signed: 9. Risk Assessment Tool Provided: LOW 10. Functional Assessment Tool: 11. Recreational Drug Use: Never Drug Type: Tobacco Use: Never Smoker Tobacco Type: Amount or Packs/day: How Many Years: Alcohol Use: No Frequency: Quant:
== END | disposition home or self-care (01) ==
LOC: PAIN 07:02
DX: M54.16 Radiculopathy, lumbar region (principal); G89.29 Other chronic pain; I10 Essential (primary) hypertension; Z96.641 Presence of right artificial hip joint; Z90.49 Acquired absence of other specified parts of digestive tract; Z85.89 Personal history of malignant neoplasm of other organs and systems; Z88.8 Allergy status to other drugs, medicaments and biological substances; Z91.041 Radiographic dye allergy status; Z79.899 Other long term (current) drug therapy; Z98.890 Other specified postprocedural states

== ENCOUNTER → 2019-04-22 | Outpatient (CLI) | payer OTHER ==
[~2019-04-22] VITALS: Ht 180.3 cm; Wt 90.4 kg
--- NOTE | ~2019-04-22 | HPC ---
[facility] [address] [place] [address] PAIN MANAGEMENT CONSULTATION Name: GRACIELA GRIFFITH Room #: REG KIRBY Nikos.#: [id number] Admission: 04/22/19 ������������������ Attend Phys: Ronni Hargrove MD Discharge: ������������������ Date of : 39 Report #: [id number] THIS REPORT FOR: //name// CC: Ronni Milner DATE OF SERVICE: 04/22/2019 CHIEF COMPLAINT: Pain injection was helpful at the last time and it has come back and I would like another. HISTORY: The patient is a very pleasant 78-year-old gentleman who has been followed in the pain clinic. As you recall, has had back pain. He has undergone surgery for this. He has a history of spinal stenosis. Still having pain and discomfort. He underwent a transforaminal epidural steroid injection and gleaned benefits from that. He returns today indicating that his pain continues to be problematic. It is radiating down the posterior portion of his back, legs and gleaned benefits from the epidural steroid injection at the L5-S1 area last time. He would like to have another injection. States that his multiple myeloma is stable at this juncture. ALLERGIES: LIPITOR, IODINE. CURRENT MEDICATIONS: Ophthalmic drops, Restasis each eye bilaterally, tramadol 50 mg q. 6 hours, aspirin 81 mg, rosuvastatin 20 mg, amlodipine 10 mg, allopurinol 100 mg, lisinopril/hydrochlorothiazide 20/12.5. PAIN CLINIC ASSESSMENT/PQRS: 1. History of osteoarthritis. The patient has some arthritic changes in his right hip. He has had a right hip replacement. He is not being treated for rheumatoid arthritis. 2. Height 5 feet 11 inches, weight 199 pounds, BMI is 27.8. 3. VITAL SIGNS: Blood pressure 134/61, pulse 66, respiratory rate 16, room air saturation 98%. 4. Pain intensity 12/21. 5. Fall history: The patient has not fallen in the last 3 months. 6. Blood thinner. The patient is not on a blood thinning medication. 7. Hypertension. The patient has been treated for hypertension. 8. Opioids greater than 6 weeks. The patient receives his medication from one source, the pain clinic. 9. Risk assessment tool, low for opioid use. 10. Functional assessment tool, . 11. Recreational drug use. The patient denies. 12. Tobacco: The patient has never smoked. 13. Alcohol: The patient denies frequent use of alcoholic beverages. [facility] [address] [place] [address] PAIN MANAGEMENT CONSULTATION Name: GRACIELA GRIFFITH Room #: REG [facility]#: [id number] Admission: 04/22/19 ������������������ Attend Phys: Ronni Hargrove MD Discharge: ������������������ Date of : 39 Report #: [id number] PHYSICAL EXAMINATION: GENERAL: The patient is a well-developed, well-nourished. Black male. Appears his stated age. He is alert and oriented x 3. His affect is appropriate. Speech is fluent. HEENT: Normocephalic, atraumatic. Extraocular eye muscles intact. There is slight redness in the sclerae. Mucous membranes are moist. NECK: Without adenopathy or JVD. Good range of motion. HEART: Regular rate. S1, S2. LUNGS: Clear to auscultation. ABDOMEN: Nontender. Bowel sounds present. The patient walks with a slight forward lean when ambulating. Complains of pain and discomfort in the lower portion of his back with pain that radiates down the L5-S1 dermatomal distribution today. He has pain in the buttocks and the posterior portion of his leg. Positive straight leg raise on the left. IMPRESSION: 1. History of lumbar radiculopathy, L4-L5 dermatomal distribution improved after epidural steroid injection in the past. 2. The patient has pain and discomfort in the L5-S1 dermatomal distribution today. 3. History of multiple myeloma, stable. 4. History of hypertension. 5. Status post chemotherapy for multiple myeloma. 6. Right total hip replacement 05/18/2017. 7. Cholecystectomy history. RECOMMENDATIONS: We discussed treatment options with the patient. Risks and benefits of an epidural steroid injection were discussed. They include but are not limited to infection, worsening of pain, no improvement in pain, bleeding and the patient elects to proceed. States his multiple myeloma is stable. Does not have any problems with bleeding. We will proceed with an epidural steroid injection. PROCEDURE NOTE: The patient was taken to the procedure area. He was then assisted in getting on examination table. His back was sterilely prepped with Betadine solution. A 0.25% bupivacaine was infiltrated at the L5-S1 area. Aspiration was negative. A 17-gauge Tuohy with loss of resistance technique at the L5-S1 area was then used to gain access to the epidural space. There was no CSF, heme or paresthesia. Total of 80 mg Depo-Medrol, 40 mg triamcinolone and 2 mL of 0.25% bupivacaine was injected. The patient tolerated the procedure well. He remained in the pain clinic for an appropriate amount of time. He will [address] [address] PAIN MANAGEMENT CONSULTATION Name: GRACIELA GRIFFITH Room #: REG KIRBY Knott#: [id number] Admission: 04/22/19 ������������������ Attend Phys: Ronni Hargrove MD Discharge: ������������������ Date of : 39 Report #: [id number] follow up in the future as needed. Total of 13 seconds fluoro time was used. The patient's pain decreased to 0 at the time of discharge. ��������������������������������������������� ���������������������������������������� By: ��������������������������������������������� 1808 [id number] Ronni Hargrove MD /zully
[2019-04-22 08:37] VITALS: BP 134/61
--- NOTE | 2019-04-22 08:44 | NUR ---
Pain Clinic Assessment: 1. History of Osteoarthritis: 05/18/17 RIGHT TKR SPINE History of Rheumatoid Arthritis: 2. Height: 5 ft. 11 in. 180.3 cm. Weight: 199.2 lb. oz. 90.357 kg. Patient's BMI: 27.8 3. Vital Signs: BP: 134/61 Pulse: 66 Resp: 16 Temp: 02 Sat: 98 ECG Mon: 4. Pain Intensity: 3 5. Fall Risk: Dizziness: N Needs help standing or walking: N Fallen in the last 3 months: N Fall risk comments: 6. Patient on Blood Thinner: None 7. History of Hypertension: Y 8. Opioid Therapy greater than 6 weeks: N Opiate Contract Signed: 9. Risk Assessment Tool Provided: LOW 10. Functional Assessment Tool: 11. Recreational Drug Use: Never Drug Type: Tobacco Use: Never Smoker Tobacco Type: Amount or Packs/day: How Many Years: Alcohol Use: No Frequency: Quant:
== END | disposition home or self-care (01) ==
LOC: PAIN 06:53
DX: M54.16 Radiculopathy, lumbar region (principal); Z98.890 Other specified postprocedural states; Z79.899 Other long term (current) drug therapy; Z88.8 Allergy status to other drugs, medicaments and biological substances

== ENCOUNTER → 2019-07-01 | Outpatient (CLI) | payer OTHER ==
[~2019-07-01] VITALS: Ht 177.8 cm; Wt 91.9 kg
--- NOTE | ~2019-07-01 | HPC ---
[facility] [address] [place] [address] PAIN MANAGEMENT CONSULTATION Name: GRACIELA GRIFFITH Room #: REG KIRBY Kristin#: [id number] Admission: 07/01/19 Attend Phys: Ronni Hargrove MD Discharge: Date of : 39 Report #: [id number] THIS REPORT FOR: //name// CC: Ronni Milner DATE OF SERVICE: 07/01/2019 CHIEF COMPLAINT: "Pain has started again in my back and is going down in the usual area." The patient is a 78-year-old gentleman who has been followed in the pain clinic because of chronic pain involving his low back. As you may recall, he has had back surgeries in the past. He continues to have pain, which is problematic. He has undergone epidural steroid injections. He finds that these have been helpful. He has a history of spinal stenosis. He also has a history of multiple myeloma. He states that this is stable. He has not had any increased bleeding problems. He continues to have pain that radiates down the posterior portion of his legs. Left and right are problematic. He has returned today with a desire to undergo another epidural injection. He has found that these have been beneficial. He rates his pain today as a 3 at its best and 8 when it becomes most problematic. He has had no problems with injections in the past. ALLERGIES: LIPITOR AND IODINE. CURRENT MEDICATIONS: Ophthalmic drops, Restasis to each eye, tramadol 50 mg q. 6 hours, aspirin 81 mg, rosuvastatin 20 mg, amlodipine 10 mg, allopurinol 100 mg, lisinopril/hydrochlorothiazide 20/12.5. PAIN CLINIC ASSESSMENT AND PQRS: 1. History of osteoarthritis. The patient has some arthritic changes in his right hip. He has had a right hip replacement. He is not being treated for rheumatoid arthritis. 2. Height 5 feet 10 inches, weight 202 pounds, BMI is 29. 3. Vital Signs: Blood pressure 122/65, pulse 61, respiratory rate 18, room air saturation 99%. 4. Pain intensity 3 at its present level, 8 is the high number. 5. Fall risk. The patient has not fallen in the last 3 months. 6. Blood thinner. The patient is not on a blood thinning medication. 7. Hypertension. The patient is being treated for hypertension. 8. Opioids greater than 6 weeks. The patient receives medication from one source, pain clinic. 9. Risk assessment tool, low for opioids. 10. Functional assessment tool . 11. Recreational drug use. The patient denies. 12. Tobacco: The patient has never smoked. [address] [address] PAIN MANAGEMENT CONSULTATION Name: GRACIELA GRIFFITH Room #: REG [facility]#: [id number] Admission: 07/01/19 Attend Phys: Ronni Hargrove MD Discharge: Date of : 39 Report #: [id number] 13. Alcohol. The patient denies use of alcoholic beverages. PHYSICAL EXAMINATION: GENERAL: The patient is a well-developed, well-nourished black male, appears his stated age. He is alert and oriented x 3. His affect is appropriate. Speech is fluent. HEENT: Normocephalic, atraumatic. Extraocular eye muscles intact. Sclerae nonicteric. Mucous membranes are moist. NECK: Without adenopathy or JVD. ABDOMEN: Nontender. Bowel sounds present. MUSCULOSKELETAL: The patient has a forward lean and walk with some evidence of an antalgic gait. He has pain in the lower portion of his back. Pain continues to radiate down the L5-S1 dermatomal distribution. He has pain in the area of his buttocks. Positive straight leg raise on the left. IMPRESSION: 1. History of lumbar radiculopathy at L4-L5, improved after epidural steroid injection in the past. Pain more problematic today at the L5-S1 area. 2. History of multiple myeloma, stable. 3. History of hypertension. 4. Status post chemotherapy for multiple myeloma. 5. Right total hip replacement on 05/18/2017. 6. Cholecystectomy. RECOMMENDATIONS: We discussed treatment options with the patient. At this juncture, he would like to proceed with another epidural steroid injection. These have proven beneficial in the past. Risks and benefits of the procedure were again discussed. They include but are not limited to infection, worsening pain, no improvement in pain, nerve damage and paralysis. The patient elects to proceed. PROCEDURE NOTE: The patient was taken to the procedure area. He was then assisted in getting on examination table. Fluoroscopy using anterior, posterior as well as lateral viewing were implemented. A pillow was placed under his abdomen to bolster and improve positioning. The patient's back was sterilely prepped with a chlorhexidine solution. A 0.25% bupivacaine was infiltrated at the L5-S1 area. A 17-gauge Tuohy with loss of resistance technique at the L5-S1 area was then advanced into the epidural space. There was no CSF, heme or paresthesia. Total of 80 mg Depo-Medrol, 40 mg triamcinolone and 2 mL of 0.25% bupivacaine was injected. The patient tolerated the procedure well. There were no complications. He will follow up in the future as needed. [address] [address] PAIN MANAGEMENT CONSULTATION Name: GRACIELA GRIFFITH Room #: REG [facility].#: [id number] Admission: 07/01/19 Attend Phys: Ronni Hargrove MD Discharge: Date of : 39 Report #: [id number] We would like to thank you for letting us participate in his care. We hope he continues to improve. By: [id number] Ronni Hargrove MD /nt
[2019-07-01 10:59] VITALS: BP 122/65
--- NOTE | 2019-07-01 10:59 | NUR ---
Pain Clinic Assessment: 1. History of Osteoarthritis: 05/18/17 RIGHT TKR SPINE History of Rheumatoid Arthritis: 2. Height: 5 ft. 10 in. 177.8 cm. Weight: 202.6 lb. oz. 91.899 kg. Patient's BMI: 29.1 3. Vital Signs: BP: 122/65 Pulse: 61 Resp: 18 Temp: 02 Sat: 99 ECG Mon: 4. Pain Intensity: 3, 8 AT IT'S WORST 5. Fall Risk: Dizziness: N Needs help standing or walking: N Fallen in the last 3 months: N Fall risk comments: 6. Patient on Blood Thinner: None 7. History of Hypertension: Y 8. Opioid Therapy greater than 6 weeks: N Opiate Contract Signed: 9. Risk Assessment Tool Provided: LOW 10. Functional Assessment Tool: 11. Recreational Drug Use: Never Drug Type: Tobacco Use: Never Smoker Tobacco Type: Amount or Packs/day: How Many Years: Alcohol Use: No Frequency: Quant:
== END | disposition home or self-care (01) ==
LOC: PAIN 06:59
DX: M54.5 Low back pain (principal); G89.29 Other chronic pain; M54.16 Radiculopathy, lumbar region; I10 Essential (primary) hypertension; Z96.641 Presence of right artificial hip joint; Z90.49 Acquired absence of other specified parts of digestive tract; Z85.79 Personal history of other malignant neoplasms of lymphoid, hematopoietic and related tissues; Z88.8 Allergy status to other drugs, medicaments and biological substances; Z91.041 Radiographic dye allergy status; Z79.899 Other long term (current) drug therapy; Z79.82 Long term (current) use of aspirin

== ENCOUNTER 2019-09-17 21:45 | Inpatient (IN) | payer OTHER ==
[~2019-09-17] VITALS: Ht 182.9 cm; Wt 87.2 kg
[2019-09-17 21:45] VITALS: BP 129/71
[2019-09-17 22:55] LABS: HEMATOCRIT 40.8 % (42.0-52.0); HEMOGLOBIN 13.2 gm/dL (14.0-18.0); MCH 28.3 pg (26.0-34.0); MCHC 32.2 g/dL (28.0-37.0); MCV 87.9 fL (80.0-100.0); RBC 4.65 mil/uL (4.50-6.00); RDW 14.7 % (10.5-14.5); WBC 11.4 thou/uL (4.0-11.0)
[2019-09-17 22:58] LABS: URINE BILIRUBIN NEGATIVE (Negative); URINE BLOOD 2+ (Negative); URINE CLARITY CLEAR; URINE COLOR YELLOW; URINE GLUCOSE-RANDOM* NEGATIVE (Negative); URINE KETONES NEGATIVE (Negative); URINE LEUKOCYTES-REFLEX NEGATIVE (Negative); URINE NITRITE-REFLEX NEGATIVE (Negative); URINE PROTEIN (DIPSTICK) 2+ (Negative); URINE SPECIFIC GRAVITY 1.025 (1.005-1.035); URINE UROBILINOGEN 0.2 E.U./dl (0.2-1.0)
[2019-09-17 22:59] LABS: CALCIUM 9.6 mg/dL (8.5-10.1); CREATININE 2.5 mg/dL (0.7-1.3); POTASSIUM 4.6 mmol/L (3.5-5.1)
[2019-09-17] MEDS ORDERED: NORCO 5-325 TA1 EAC1 PO (23:19)
[2019-09-17 23:21] LABS: SQUAMOUS 0-3 Few /LPF (0-3)
[2019-09-17 23:22] LABS: AMORPHOUS URATES Few /LPF (None Seen); BACTERIA-REFLEX 1-9 Few /HPF (None Seen); CASTS None Seen /LPF (None Seen); MUCUS 0-3 Light strn/LPF (None Seen); URINE RBC 3-10 Few /HPF (0-2); URINE WBC-REFLEX 0-5 Rare /HPF (0-5)
[2019-09-17 23:29] LABS: ABSOLUTE NEUTROPHILS 9.8 thou/uL (1.4-8.2); BASOPHILS 0.1 % (0.0-2.0); EOSINOPHILS 0.1 % (0.0-3.0); LYMPHOCYTES 6.2 % (24.0-44.0); MONOCYTES 6.3 % (1.0-8.0); POLYS 87.3 % (36.0-66.0); WBC 11.2 thou/uL (4.0-11.0)
[2019-09-17 23:35] LABS: ALBUMIN 2.8 g/dL (3.4-5.0); DIRECT BILIRUBIN 0.3 mg/dL (<0.1-0.3); TOTAL BILIRUBIN 0.9 mg/dL (<0.1-1.0); TOTAL PROTEIN 8.3 g/dL (6.4-8.2)
[2019-09-18 06:44] LABS: HEMATOCRIT 35.1 % (42.0-52.0); MCV 85.3 fL (80.0-100.0); RBC 4.12 mil/uL (4.50-6.00); WBC 11.9 thou/uL (4.0-11.0)
[2019-09-18 07:08] VITALS: BP 116/59
[2019-09-18 08:01] LABS: CALCIUM 9.9 mg/dL (8.5-10.1); CREATININE 3.3 mg/dL (0.7-1.3); POTASSIUM 4.2 mmol/L (3.5-5.1)
[2019-09-18 08:15] VITALS: BP 103/65
[2019-09-18 11:50] VITALS: BP 120/48
--- NOTE | 2019-09-18 14:38 | NUR ---
Chart reviewed and case discussed with the care team. Pt in ISO for flu+. He lives with his and was indep prior to admission. He does have a history of CVA and MM. Nursing reports his mobility to be hampered by pain and body aches. Will ask for therapy evals as he improves to determine if hh or rehab maybe indicated. Pt has health insurance coverage and pcp in place for f/u care. will follow along should dc needs arise. No weekend dc anticipated.
[2019-09-18 15:35] VITALS: BP 143/71
--- NOTE | 2019-09-18 18:40 | NUR ---
RECEIVED PT'S CARE AROUND 0800; PT. ON BED; AOX4; DURING ASSESSMENT C/O BACK PAIN WHEN SITTING UP; EDUCATED ABOUT PAIN MANAGEMENT; ST. FEELING PAIN ONLY WHEN MOVING HEAD UP ON BED; ADMISSION PERFORMED; IV MEDICATION STARTED; AM MEDICATION GIVEN; CRITICAL LABS; PHYSICIAN NOTIFIED; ORDERS RECEIVED; HR MONITOR D/C; MS ORDERS; POOR APPETITE THROUGH THE DAY; REQUESTED ENSURE; PHYSICIAN NOTIFIED; CARB CONTROL DIET; NEW ORDERS; REFUSED SECOND STICK TO OBTAIN BLOOD; EDUCATED ABOUT THE NEED OF BLOOD COLLECTION; LACTIC ACID ELEVATED; AGREED WITH WITHRAWN BLOOD; REQUESTED PRN PAIN MEDICATIO LATE ON THE NIGHT; MEDICATION GIVEN; ASSESSMENT CHARGED; FOLLOWING POC; WILL PASS ON REPORT;
[2019-09-18 21:08] VITALS: BP 132/67
[2019-09-19 04:50] VITALS: BP 146/69
[2019-09-19 07:50] VITALS: BP 156/93
--- NOTE | 2019-09-19 08:25 | HC ---
[facility] [place] [address] CONSULTATION Name: GRACIELA GRIFFITH Room #: 205-P [facility] IN M.R.#: [id number] Admission: 09/18/19 Attend Phys: [place] Discharge: Date of : 39 Report #: [id number] THIS REPORT FOR: //name// CC: Ria Milner DATE OF SERVICE: 09/18/2019 REASON FOR CONSULTATION: History of multiple myeloma. 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 He received some form of therapy and then it looks like a repeat bone marrow in about 03/2014 did not show any evidence of bone marrow involvement. He tells me it has been several years since he has been on therapy and is thought to be in remission. He tells me his next appointment with Dr. Jason Perdue is, I believe, in 11/2019. The patient was admitted with a several-day history of severe body aches. He denies any fevers. He did not have any cough or breathing difficulties or diarrhea. He does have chronic back pain and receives steroid injections or at least some type of injection from Dr. Jose Hargrove. He asks if this will need to be delayed next week. I told him probably so, but I will defer to Dr. Hargrove. The patient told me his at home has been healthy, they had a good Thanksgiving and no one was specifically was sick that he can recall. PAST MEDICAL HISTORY: Notable for the history of what appears to be an IgG multiple myeloma from about 2013, possibly in remission though all the charts are unavailable from the outside. Also, history of perhaps some rheumatoid arthritis, hyperlipidemia, hypertension, prostate cancer, glucose intolerance, maybe history of CVA. Also, history of chronic back pain. Also, has a history of total knee replacement, prostatectomy, bunion removal, bilateral cataract surgery in the past. Also, as I mentioned some knee surgery also. SOCIAL HISTORY: He is retired. I do not recall his history of smoking or alcohol, no street drugs. Did have a dog at home. FAMILY HISTORY: Not significant. MEDICATIONS: At this time in the hospital include allopurinol 100 mg daily, [facility] [address] [place] [address] CONSULTATION Name: GRACIELA GRIFFITH Room #: 205-P ADM IN M.R.#: [id number] Admission: 09/18/19 Attend Phys: [place] Discharge: Date of : 39 Report #: [id number] multivitamin with iron daily, aspirin enteric-coated aspirin 325 mg daily, amlodipine 5 daily, insulin on a sliding scale, tramadol 50 mg q. 6 hours p.r.n., IV fluids, he is also on oseltamivir 30 mg at bedtime. PHYSICAL EXAMINATION: VITAL SIGNS: Height is 6 feet in one measurement, another place mentions 5 feet 10 inches, weight is 192 pounds. The patient had a temperature last night of 100.8, most recently 97.8, blood pressure 116/59 with respirations 20, pulse 102. MOOD: He is alert and pleasant. NEUROLOGIC: Face, speech and thought pattern appear to be normal. He is moving extremities. LYMPHATICS: No enlarged lymph nodes in the supraclavicular, cervical, axillary or inguinal region. ABDOMEN: Slightly obese, nontender. No masses. EXTREMITIES: Without clubbing, cyanosis. There is some mild edema. LABORATORY DATA: Here notable for the positive influenza A and influenza B swabs, creatinine 2.5, AST 77, total bilirubin 0.9, ALT 33, total protein 8.3 with an albumin of 2.8. Note that that was before hydration. CPK was 1665. White count is 11.9, hemoglobin 12, MCV 85.3, platelets 349. Differential normal without any mention of metamyelocytes or myelocytes are seen in the past when he was sick, past IgG level in 05/2016 was 2393. Most recent M spike in 05/2016 was not seen. Blood cultures have been negative so far. UA did have some squamous cells and also few bacteria, few white cells. Chest x-ray had a question of mild early pneumonitis versus atelectasis. ASSESSMENT AND PLAN: 1. History of IgG multiple myeloma from 2013 by the patient's report thought to be in remission. We will get records from the chart. We will repeat serum protein electrophoresis here. 2. Influenza A and influenza B. Continue supportive measures including Tamiflu and fluids. 3. Chronic kidney disease stage 3. Creatinine at 2.5, previously followed by Dr. Villarreal. We will need to watch doses of medications and fluid status. 4. Diabetes mellitus/hyperglycemia. Per others, he is currently on insulin sliding scale. 5. History of rheumatoid arthritis per others. 6. Hyperlipidemia per others. 7. Hypertension per others. 8. 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 [facility] [address] [place] [address] CONSULTATION Name: GRACIELA GRIFFITH Room #: 205-P ADM IN M.R.#: [id number] Admission: 09/18/19 Attend Phys: [place] Discharge: Date of : 39 Report #: [id number] 9. History of transient ischemic attack and stroke in the past per others, so he is on aspirin. We will follow and be available. <ELECTRONICALLY SIGNED> By: Santiago Liang MD 09/19/19 0825 [id number] Santiago Liang MD /nt
[2019-09-19 11:40] VITALS: BP 158/79
[2019-09-19 15:30] VITALS: BP 142/81
--- NOTE | 2019-09-19 18:08 | NUR ---
RECEIVED PT'S CARE AROUND 0710; PT. ON BED; AOX4; NO C/O PAIN; REMAINED ABOUT PAIN MANAGEMENT; ST. UNDERSTANDING; PRN PAIN MEDICATION GIVEN WITH AM MEDICATIONS; RE-ASSESSMENT PT. SLEEPING; INSULIN COVER DURING LUNCH; FAMILY & PT. EDUCATED ABOUT THE REASONS OF GETTING INSULIN; ST. UNDERSTANDING; THROUGH THE DAY ABLE TO REST FROM TIME TO TIME; INCREASE URINE OUTPUT THROUGH THE DAY; NC O2 D/C EARLY ON THE MORNING; ABOVE 95% ON RA; ASSESSMENT CHARGED; FOLLOWING POC; WILL PASS ON REPORT;
[2019-09-19 20:15] VITALS: BP 141/73
[2019-09-20 04:04] VITALS: BP 142/71
[2019-09-20 04:49] LABS: ALBUMIN 1.8 g/dL (3.4-5.0); CALCIUM 9.3 mg/dL (8.5-10.1); PHOSPHORUS 3.6 mg/dL (2.5-4.9); POTASSIUM 3.7 mmol/L (3.5-5.1)
[2019-09-20 04:51] LABS: CREATININE 2.3 mg/dL (0.7-1.3)
[2019-09-20 04:58] LABS: HEMOGLOBIN 11.1 gm/dL (14.0-18.0); MCH 28.6 pg (26.0-34.0); MCHC 32.8 g/dL (28.0-37.0); MCV 87.3 fL (80.0-100.0); RBC 3.89 mil/uL (4.50-6.00); WBC 13.7 thou/uL (4.0-11.0)
--- NOTE | 2019-09-20 06:00 | NUR ---
PT AWAKE AND ALERT. A VERY DELIGHTFUL LITTLE GENTLEMAN. REMAINS A MED SURG OVERFLOW. PT VOIDS PER URINAL BUT IS OFTEN TIMES INCONTIENT OF URINE. DENIES PAIN AT PRESENT. WILL CONT TO MONITOR
[2019-09-20 07:50] VITALS: BP 150/73
[2019-09-20 16:50] VITALS: BP 149/68
--- NOTE | 2019-09-20 17:43 | NUR ---
ASSUMED CARE PT SHIFT CHANGE. ASSESSMENT CHARTED. MEDS GIVEN PER DEC. PT C/O PAIN- MANAGED WITH PO PAIN MEDS. O2 SATS WNL ON ROOM AIR. DENIES SOB. BREATHING TREATMENTS ORDERED PER PHYSICIAN. PT ATE BREAKFAST, REFUSED SUPPLEMENTS THROUGHOUT SHIFT, DID NOT WANT LUNCH OR DINNER. PT NAUSEOUS THIS SHIFT--ZOFRAN GIVEN AND RELIEF OBTAINED. PT INCONTINENT ON AND OFF THROUGHOUT SHIFT. PT ABLE TO NAP DURING DAY. ISOLATION MAINTAINED. FAMILY AT BEDSIDE THOUGHOUT SHIFT. TURNS ENFORCED. PT CURRENTLY RESTING WITH FAMILY AT BEDSIDE. DENIES NEEDS OR CONCERNS AT THIS TIME. CONTINUING TO MONITOR.
[2019-09-20 21:21] VITALS: BP 135/60
[2019-09-20 23:06] LABS: HBsAG-EMPLOYEE EXPOSURE Negative (Negative); HCV AB-EMPLOYEE EXPOSURE 0.1 (0.0-0.9)
[2019-09-21 02:09] LABS: URINE BILIRUBIN NEGATIVE (Negative); URINE BLOOD 2+ (Negative); URINE CLARITY CLEAR; URINE COLOR YELLOW; URINE GLUCOSE-RANDOM* NEGATIVE (Negative); URINE KETONES NEGATIVE (Negative); URINE LEUKOCYTES-REFLEX NEGATIVE (Negative); URINE NITRITE-REFLEX NEGATIVE (Negative); URINE PROTEIN (DIPSTICK) 1+ (Negative); URINE SPECIFIC GRAVITY 1.015 (1.005-1.035)
[2019-09-21 02:37] LABS: AMORPHOUS URATES Few /LPF (None Seen); BACTERIA-REFLEX None Seen /HPF (None Seen); FINE GRANULAR CASTS 0-3 Few /LPF (None Seen); MUCUS 0-3 Light strn/LPF (None Seen); SQUAMOUS None Seen /LPF (0-3); TRANSITIONAL EPITHEL CELL 0-3 Few /LPF (None Seen); URINE RBC 0-2 Rare /HPF (0-2); URINE WBC-REFLEX None Seen /HPF (0-5)
[2019-09-21 02:38] LABS: CRYSTALS None Seen /LPF (None Seen)
--- NOTE | 2019-09-21 04:29 | NUR ---
Visited by family members around HS. Continue on droplet precaution for Influenza A&B. Some family members given education about droplet precautions. Temp of 101.7 at HS. Tylenol given and now he is afebrile. Dr. Mendoza ordered to do 2 sets of blood culture next time he has temp >101. Urine specimen sent to lab. He has been repositioned for comfort. Denies being in pain except when repositioning he frowns. Denies need for pain med at that time then this am he finally requested for on for which tramadol was given. He vomitted at HS while family members were here then felt better. He decided to eat crackers later on then he threw up again. Zofran given with some relief. Tolerating room air well with no respiratory distress.Bed alarm on for safety. Incontinent of bladder x2 then used urinal x2. Offered external catheter but refused. Will continue to monitor.
[2019-09-21 05:05] VITALS: BP 165/74
[2019-09-21 05:19] LABS: HEMOGLOBIN 11.5 gm/dL (14.0-18.0)
[2019-09-21 05:22] LABS: HEMATOCRIT 35.4 % (42.0-52.0); MCH 28.1 pg (26.0-34.0); MCHC 32.4 g/dL (28.0-37.0); MCV 86.7 fL (80.0-100.0); PLATELET COUNT 206 thou/uL (150-400); RBC 4.08 mil/uL (4.50-6.00); RDW 15.2 % (10.5-14.5); WBC 13.4 thou/uL (4.0-11.0)
[2019-09-21 05:45] LABS: ALBUMIN 1.8 g/dL (3.4-5.0); CALCIUM 8.9 mg/dL (8.5-10.1); CREATININE 1.9 mg/dL (0.7-1.3); PHOSPHORUS 3.3 mg/dL (2.5-4.9); POTASSIUM 3.7 mmol/L (3.5-5.1)
--- NOTE | 2019-09-21 06:34 | NUR ---
MAINTENANCE AND CUSTODIAN SUPERVISOR notified of vomiting x 3 this shift. Pt. has no c/o abdominal pain. Dr. Alcocer Absirounding on pt this am. He ordered PT/OT to eval.
[2019-09-21 08:00] VITALS: BP 157/75
[2019-09-21 09:20] LABS: ABSOLUTE NEUTROPHILS 10.5 thou/uL (1.4-8.2); PLATELET ESTIMATE NORMAL
--- NOTE | 2019-09-21 14:20 | NUR ---
pt resting in bed this am. nauseous, vomitted after taking am meds with sips of water. wanted to "rest" about 10am, was able to drink ensure supplement and hoped to eat his eggs and fruit after he transferred to room 455.
--- NOTE | 2019-09-21 17:13 | NUR ---
I have reviewed the documentation by TOMAS TABOR from 09/21/19 to 09/21/19 and I concur with it. NIYAH ARREGUIN
--- NOTE | 2019-09-21 18:15 | NUR ---
Assumed patient care at approximately 1110. Patient transferred from CCU. Patient is on Droplet Precations for Influenza A and B. Patient has Multiple Myeloma which is in remission. Vital signs stable upon arrival except temperature was 100.7. Patient complained of "level seven pain", and "all over." He was given Tylenol 650mg po. Techs from Radiology came to brain picker patient for a chest x-ray (front and back view). This nurse asked patient "how did the Tylenol work for your pain?", he responded with "I feel great!" As soon as the Tech's tried to move patient to the transfer cart, patient screamed out in pain. A family member stated "he is used to taking strong pain medications at home", and, "how come you nurses don't know anything about him!?" Physical Therapy had assessed patient before transferring to ; patient was able to sit up on the side of the bed but was unable to stand. Patient and family denied that patient was able to sit up at all. This nurse contacted Dr Washington whom gave telephone orders for patient to have a Portable X-Ray in his room. Dr Washington informed this nurse that "patient did not complain of pain upon her assessment this am." Dr Washington assured this nurse that Infectious Disease Doctor and other Physicians would be on unit tomorrow morning to follow up on patient's complaints of pain. Patient vomited x's 1 (approximately 100cc with a blood tinged mucous plug). Patient has been placed on a clear liquid diet because of this. New order for Patoprazole 40mg IV push q daily, gave first dose this evening. Will inform on-coming RN of this patient's condition. of pain upon her assessment
[2019-09-21 19:31] VITALS: BP 163/112
--- NOTE | 2019-09-22 03:12 | NUR ---
ASSUMED CARE OF PT AT 1900GRA. PT IS AOX4 AND MAKES NEEDS BE KNOWN. FALL PRECAUTION IN PLACE. PT IS INCT AT TIMES. PRE REPORTED SOME NAUSEA AND PAIN BUT DECLINED MEDICATIONS AVAILABLE. PT HAD DARK BROWN EMISIS X1 THIS SHIFT APPX 150ML. ABX TREATMENT CONTINUED. PT IS PAINFUL TO TOUCH AND MOVEMENT. PT WAS ABLE TO GET SOME SLEEP THIS SHIFT. WILL CONTINUE TO MONITOR.
[2019-09-22 05:19] VITALS: BP 186/93
[2019-09-22 06:33] LABS: ALBUMIN 1.7 g/dL (3.4-5.0); CALCIUM 9.7 mg/dL (8.5-10.1); CREATININE 1.7 mg/dL (0.7-1.3); PHOSPHORUS 2.7 mg/dL (2.5-4.9); POTASSIUM 3.7 mmol/L (3.5-5.1)
[2019-09-22 08:00] VITALS: BP 185/104
[2019-09-22 13:50] LABS: CLARITY TURBID; COLOR PINK; SOURCE SYNOVIAL; TOTAL VOLUME 40 mL
[2019-09-22 14:48] LABS: BF NUCLEATED CELLS 335425; BF RBC 49941
[2019-09-22 15:00] VITALS: BP 173/83
[2019-09-22 15:15] LABS: BF CRYSTALS No Crystals seen
[2019-09-22 16:36] LABS: BF MACROPHAGE 11; BF NEUTROPHILS 66
[2019-09-22 19:17] VITALS: BP 144/78
--- NOTE | 2019-09-22 20:42 | NUR ---
Received awake on bed. Due medications given as prescribed, able to swallow meds q/o difficulty. A+O. On clear liquids- tolerating. Complained of pain- PRN pain meds given as prescribed; pt vomited- anti-emetic given as prescribed. Assisted in ADLs. Pt turned on his bed regularly. With son at the bedside. On blood sugar monitoring-taken and recorded accordingly. With R EJ, NS at 100cc/hr infusing well. Maintained on isolation due to flu. Pt seen by Dr Leslie- discontinued IVF as ordered, encouraged and offered fluids to the pt. Pt seen by Dr Guo- followed up re: laboratory result- called lab and said they had to send out specimen, still no answer from outside laboratory- update given to Dr Guo. Radiology called re: US guided Rt knee aspiration- done at IR, tolerated well, specimen sent by staff downstairs. Pt complained that pain is not relieved by current pain meds and he still doesnt have any bowel movement- Dr Washington informed and addressed pt concerns. Pt refused Bisacodyl and said he wanted it tomorrow, auto service mechanic nurse informed. Visited relatives today. Pt said he has better pain relief from Oxycodone. Pt refused PM OT/PT. To continue monitoring patient.
--- NOTE | 2019-09-22 20:59 | HC ---
[facility] [place] [address] CONSULTATION Name: GRACIELA GRIFFITH Room #: 455-P [facility] IN M.R.#: [id number] Admission: 09/18/19 Attend Phys: [place] Deal Discharge: Date of : 39 Report #: [id number] THIS REPORT FOR: //name// CC: Los Milner DATE OF SERVICE: 09/18/2019 INFECTIOUS DISEASE CONSULTATION REASON FOR CONSULTATION: I was asked to evaluate concerning influenza. HISTORY OF PRESENT ILLNESS: The patient is a 78-year-old with underlying history of multiple myeloma in remission and rheumatoid arthritis, no reported immunosuppression, who presents with a several day history of myalgias, arthralgias, arthritis. Pain was bad enough that he could not get out of bed. Brought into the Emergency Room for further evaluation. He has been afebrile. He is on oxygen per nasal cannula now. He has had no cough or sputum production. Denies any nausea, vomiting or diarrhea. Does have chronic arthritis pain and does require regular spinal injections for his low back pain. Multiple myelomas, has been on treatment until about 4 months ago when he was determined UMA. Also, has diet-controlled diabetes with no change. REVIEW OF SYSTEMS: A 10-point review of system was negative other than what has been described above. PAST MEDICAL HISTORY: Multiple back surgeries, prostate cancer in 2001, status post prostatectomy, left total knee arthroplasty, bunionectomy, rheumatoid arthritis, hypertension, stroke, diabetes, cataracts, bone marrow biopsies, hyperlipidemia. ALLERGIES: ATORVASTATIN AND IODINE. MEDICATIONS: [place], lisinopril, hydrochlorothiazide, Zyloprim, Norvasc, rosuvastatin, aspirin, Ultram, multivitamin. FAMILY HISTORY: Noncontributory. SOCIAL HISTORY: Nonsmoker, no significant alcohol intake. PHYSICAL EXAMINATION: VITAL SIGNS: Afebrile and hemodynamically stable. Oxygen at 3 liters per nasal cannula. His maximum temperature was 100.8 on admission. SKIN: Without rash or decubitus. No palpable adenopathy. EYES: Without scleral icterus. MOUTH: Without mucositis. [facility] [address] [place] [address] CONSULTATION Name: GRACIELA GRIFFITH Room #: 455-P [facility] IN M.R.#: [id number] Admission: 09/18/19 Attend Phys: [place] Deal Discharge: Date of : 39 Report #: [id number] NECK: Supple. LUNGS: Clear. HEART: Regular, without murmur, gallop, or rub. ABDOMEN: Soft, nontender, no hepatosplenomegaly or mass appreciated. EXTREMITIES: Without clubbing, cyanosis or edema. He had diffuse arthritis changes. Notably, his right knee with effusion. Left elbow with effusion. Unable to get out of bed on his own. NEUROLOGIC: Cranial nerves intact. Strength in his upper and lower extremities seemed symmetric and normal. Sensation to touch was normal in upper and lower extremities. Mood was normal. Affect normal. BACK: Spine was tender throughout, but similar to his other joints. LABORATORY STUDIES: Lactate was 3. Blood cultures are negative. Sodium 140, potassium 4.2, bicarbonate 20, creatinine 3.3. Hemoglobin 12, WBC 11.9, platelet count 349,000. CPK 1665. Urinalysis unremarkable other than 2+ protein. Chest x-ray with medial basilar atelectasis. Influenza antigen both A and B were positive. Blood cultures now revealing streptococcal species, 2/2 obtained at the same time. IMPRESSION: A 78-year-old with underlying history of multiple myeloma, reportedly in remission, presents with polyarthritis, low-grade fever, hypoxia. Influenza antigen both positive for A and B, concerning for false positive reaction associated with a streptococcal bacteremia. It is noted that the patient was a difficult stick and that the blood cultures were drawn at the same time. Still indeterminate if this is true bacteremia or not. In the setting of multiple myeloma, we will assume it is a true bacteremia and we will treat accordingly. The source of his arthritis could be rheumatoid, crystalline arthritis or septic. In the setting of known rheumatoid arthritis, I would expect the former. RECOMMENDATIONS: We will continue IV antibiotic therapy. We will check viral respiratory panel. Continue combination antiviral and antibiotic therapy and would consider giving a course of corticosteroids to assist with his arthritis. Would also have Rheumatology aspirate his knee to ensure rheumatoid polyarthritis and not septic before steroids are given . Case was discussed with nursing staff. We will repeat his blood cultures today and adjust antibiotics pending final results. <ELECTRONICALLY SIGNED> By: Parish Ochoa MD 09/22/19 2059 [id number] [id number] Parish Ochoa MD /nt
--- NOTE | 2019-09-23 05:05 | NUR ---
Pt. rested quietly during the night when checked on during frequent rounds. He did c/o bilateral knee pain and po pain medication given (see emar) with some relief noted. Bed alarm is on.
[2019-09-23 07:32] VITALS: BP 150/73
[2019-09-23 08:07] LABS: ADENOVIRUS Negative (Negative); INFLUENZA A Negative (Negative); INFLUENZA B Negative (Negative); METAPNEUMOVIRUS Negative (Negative); PARAINFLUENZA 1 Negative (Negative); PARAINFLUENZA 2 Negative (Negative); PARAINFLUENZA 3 Negative (Negative); RHINOVIRUS Negative (Negative); RSV A Positive (Negative); RSV B Negative (Negative)
--- NOTE | 2019-09-23 10:09 | HC ---
[facility] [place] [address] CONSULTATION Name: GRACIELA GRIFFITH Room #: 455-P [facility] IN M.R.#: [id number] Admission: 09/18/19 Attend Phys: Los Deal Discharge: Date of : 39 Report #: [id number] THIS REPORT FOR: //name// CC: Los Milner DATE OF SERVICE: 09/20/2019 REASON FOR CONSULTATION: Elevated creatinine. REASON FOR PRESENTATION: Shortness of breath, weakness and body aches. HISTORY OF PRESENT ILLNESS: A well-known patient to me. A 78-year-old with IgG multiple myeloma, in remission. He sees oncologist and there had been repeated labs showing that there is no evidence of relapse. He has chronic kidney disease with a baseline creatinine anywhere from 1.8-2.0. He had some issues with severe body aches and inability to move associated with some shortness of breath. He presented for further evaluation and management. The patient tested positive for influenza and is currently being treated accordingly. His creatinine on presentation as expected was above his baseline and with hydration and treatment of his influenza, his creatinine has been trending down toward his baseline. PAST MEDICAL HISTORY: 1. Myeloma. 2. Chronic kidney disease, baseline creatinine is around 2. 3. Hyperlipidemia. 4. Hypertension. 5. CVA. 6. History of chronic back pain. 7. Total knee replacement. 8. Prostatectomy. 9. Bilateral cataract surgeries. SOCIAL HISTORY: Retired. No drug or alcohol abuse. FAMILY HISTORY: Significant for hypertension. MEDICATIONS: 1. Amlodipine. 2. Tramadol. 3. Lisinopril. 4. Currently maintained on Rocephin and Tamiflu. REVIEW OF SYSTEMS: GENERAL: Significant for weakness and lethargy, inability to move. [facility] [address] [place] [address] CONSULTATION Name: CELIA GRIFFITHREST Marty Room #: 455-P [facility] IN .R.#: [id number] Admission: 09/18/19 Attend Phys: [place] Deal Discharge: Date of : 39 Report #: [id number] CARDIOVASCULAR: No chest pain or palpitation, but significant for shortness of breath. PULMONARY: As per the history of present illness. GASTROINTESTINAL: No nausea or vomiting. GENITOURINARY: No frequency, no urgency. MUSCULOSKELETAL: Diffuse body aches and myalgias. SKIN: No rash or ulcerations. NEUROLOGICAL: Significant for headache, no dizziness. PHYSICAL EXAMINATION: GENERAL: The patient is alert, oriented, in no apparent distress. VITAL SIGNS: Blood pressure is 142/71, temperature is 36.4, pulse rate is 99. HEAD AND NECK: No jugular venous distention. CHEST: No crackles. CARDIOVASCULAR: Regular, with no rub. ABDOMEN: Soft, nontender with no hepatosplenomegaly. LOWER EXTREMITIES: No edema with intact peripheral pulses. LABORATORY DATA: Values reviewed. White blood cell count is 13.7. Sodium is 138, BUN is 61, creatinine is down to 2.3 from 3.3. Cultures are showing Gram-positive cocci with strep pneumonia. He tested positive for influenza. ASSESSMENT, IMPRESSION AND PLAN: 1. Influenza. 2. Pneumococcal bacteremia. 3. Multiple myeloma. 4. Acute kidney injury. 5. Chronic kidney disease. 6. The patient's creatinine worsening in the last few days was expected because of his current sepsis. His creatinine is now trending down appropriately with IV fluid. 7. Keep on treatment for strep pneumonia. 8. Keep on treatment for flu. 9. Expect his kidney function to fully recover to his baseline. 10. Hematology following regarding his myeloma. <ELECTRONICALLY SIGNED> By: Ria Villarreal MD 09/23/19 1009 [id number] [id number] Ria Villarreal MD /nt
--- NOTE | 2019-09-23 14:27 | NUR ---
I have reviewed the documentation by TOMAS TABOR from 09/23/19 to 09/23/19 and I concur with it. NIYAH ARREGUIN
[2019-09-23 14:32] VITALS: BP 145/72
[2019-09-23 15:10] LABS: GLOBULIN TOTAL 3.8 g/dL (2.2-3.9); M-SPIKE 0.6 g/dL (Not Observed)
--- NOTE | 2019-09-23 18:22 | NUR ---
Patient admitted at approximately 1200 from [facility]. Patient is from [facility]. His Olive is DPOA, lives at their home. 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 Edema noted in left upper extremity. Patient states "I have blood clots in this arm." IV placed in right upper arm per IV Team. Patient has an indwelling catheter due to incontinence. He has a sacral wound, a wound on his left heel and one on his back. [facility] took pictures today, they are in patient's chart. Patient has an MRI scheduled for tomorrow; he refused to sign for this, as he stated "I just had one a few days ago!" Vital signs have been stable. Will report to on-coming RN.
[2019-09-23 19:10] VITALS: BP 149/66
--- NOTE | 2019-09-23 20:02 | NUR ---
Assumed patient care at 0715. Vital signs have been stable. Patient continues on Droplet Precautions for Influenza A and B. Patient continues to complain of generalized pain, as well as increased Right Knee Pain. Pain is somewhat relieved by Oxycodone. He has been off unit for right knee surgery to "wash infection out" with possibility of this to be done again in a few days. Family has been at bedside throughout this shift; they have several questions. Family would like to talk to a Physician tomorrow that can "paint a complete picture of what is going on with their father." On-coming RN has been advised.
[2019-09-23 21:14] VITALS: BP 158/65
[2019-09-23 22:24] VITALS: BP 151/72
[2019-09-24 00:11] VITALS: BP 148/67
--- NOTE | 2019-09-24 04:14 | NUR ---
Pt. rested quietly at intervals during the night when checked on during frequent rounds. He was given po pain medication (see emar) for c/o pain to his right knee with some relief noted. Dressing to right knee is dry and intact with hemovac patent. Tolerating po diet. Bed alarm is on.
[2019-09-24 04:29] VITALS: BP 152/71
--- NOTE | 2019-09-24 07:54 | O ---
[facility] [place] [address] OPERATIVE REPORT Name: GRACIELA GRIFFITH Room #: 455-P ADM IN M.R.#: [id number] Admission: 09/18/19 Attend Phys: Los Deal Discharge: Date of : 39 Report #: [id number] THIS REPORT FOR: //name// CC: Los Milner DATE OF SERVICE: 09/23/2019 PREOPERATIVE DIAGNOSIS: Septic right total knee. POSTOPERATIVE DIAGNOSIS: Septic right total knee. PROCEDURE: Irrigation and lavage, right knee. SURGEON: Anoop Cueto MD INDICATIONS: This 78-year-old gentleman presents with respiratory viral pneumonia and generalized sepsis with positive blood cultures involving strep pneumonia. He has also developed various areas of arthralgia and now swelling and pain involving the right knee. Previous aspiration suggests knee infection. He has a total knee in place, which was placed about 2 years ago. He has not had previous problems until this new event. I have discussed with the patient treatment options and elected to go ahead with emergent lavage and irrigation. Pending the findings, we may consider either a more aggressive open debridement and exchange of the polyethylene liner or complete explantation of the joint. DESCRIPTION OF PROCEDURE: The patient was taken to the operating room where he was placed under brief general anesthetic. The right knee and leg were meticulously prepped and draped. Two arthroscopy cannulas were placed in the suprapatellar region. They were used to irrigate the knee with about 6000 mL of antibiotic irrigation. Before irrigating the knee, about 50 mL of grossly purulent fluid was evacuated and this will be sent for analysis and culture. The knee seemed to clean up nicely with clear blood-tinged fluid about alf through the irrigation procedure. The fluid remained mildly blood-tinged, but fairly clear at the conclusion of the aggressive lavage. Two Hemovac drains were placed in the knee. A sterile dressing was applied. The patient was then awakened and returned to recovery room in good condition. <ELECTRONICALLY SIGNED> By: Anoop Cueto MD 09/24/19 0754 1818 2031 Anoop Cueto MD /nt
[2019-09-24 08:15] VITALS: BP 152/61
--- NOTE | 2019-09-24 08:27 | EKG ---
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
--- NOTE | 2019-09-24 13:50 | NUR ---
Nutrition: Pt seen for early day 6 LOS. Pt was sound asleep, but 3 family members present for interview. Admit: flu, pneumonia. Hx includes IgG multiple myeloma, CVA, DM (diet controlled), rhematoid arthritis. EMR states Influenza A+ and B+ is a false reaction. He was limited to clear liquids 09/22, NPO 09/23 - 09/24, but able to start heart healthy diet at lunch. S/p surgery yesterday with lavage for R septic knee, possibly need more aggressive open debridement in the coming days. Family was optimistic with how well he ate at lunch. Denied any active nutrition concerns. RD encouraged prioritizing protein foods first at meals; identified sources offered on menus. Explained how to order alternative items to help boost po success. On a MVI w/ iron. Keep as low nutrition risk as family denied further intervention needs.
--- NOTE | 2019-09-24 14:16 | NUR ---
I have reviewed the documentation by TOMAS TABOR from 09/24/19 to 09/24/19 and I concur with it. NIYAH ARREGUIN
[2019-09-24 16:00] VITALS: BP 138/66
--- NOTE | 2019-09-24 18:10 | NUR ---
PT ALERT AND ORIENTED TIMES FOUR. VSS, 95%RA. RIGHT LEG DRESSING WITH DRAIN C/D/I. PT TOLERATES MEDS AND MEALS. PT FAMILY AT BEDSIDE. PT SLOWLY PROGRESSING TOWRADS POC GOALS.
[2019-09-24 20:02] VITALS: BP 149/68
[2019-09-24 23:53] VITALS: BP 141/68
[2019-09-25] VITALS (7 sets, daily range): BP systolic 108–159; BP diastolic 58–91
--- NOTE | 2019-09-25 04:29 | NUR ---
Assessments completed. pt a&ox4. tired and sleepy. tolerated meds well and requested pain meds for back pain. pt slept most of the night. dressing to right knee intact and dry. wound vac patent and wrappped, mild output. v/s stable. pt uses the urinal with assistance. no s/s of distress. will cont to monitor
--- NOTE | 2019-09-25 09:09 | NUR ---
WOUND CONSULT; INITIAL ASSESSMENT REVEALS A PATIENT THAT IS S/P RIGHT KNEE SURGERY WITH A HEMOVAC PRESENT. A SKIN TEAR WAS IDENTIFIED TO THE RIGHT BUTTOCK WITH A HEALTHY BEEFY RED WOUND BED 1.5 X 0.3 X 0.1 NO S/S OF INFECTION. RECOMMENDATION ZGUARD BID/PRN, FLOAT HEELS ON PILLOWS. Q2H TURN, LOW AIR LOSS PUMP. DISCUSSED WITH STAFF
--- NOTE | 2019-09-25 15:32 | NUR ---
PT HAVING SURGERY TODAY EITHER EXPLANTATION OR WASH OUT. PT AND OT ARE RECOMMENDING POSSIBLE POST ACUTE CARE STAY UPON DC. IT IS ANTIPATED THAT PT WILL BE HERE OVER THE WEEKEND. CM TO FOLLOW UP AND PROVIDE INFO FOR POSSIBLE OPTIONS UPON DC.
--- NOTE | 2019-09-25 18:47 | NUR ---
PATIENT JUST RETURNED FROM SURGERY. HEMAVAC TO LEFT KNEE INTACT DRAINING BLOOD. HE DENIES PAIN. NOW SLEEPING. FAMILY WAS A BEDSIDE THEY HAVE NOT LEFT. WILL CONT WITH PLAN OF CARE.
[2019-09-26] VITALS: BP 128/57
[2019-09-26 01:00] VITALS: BP 136/60
[2019-09-26 03:56] VITALS: BP 123/66
--- NOTE | 2019-09-26 04:30 | NUR ---
CARE ASSUMED AT 1900 PATIENT WAS IN BED ASLEEP. NO S/S OF PAIN OR DISCOMFORT. VITAL SIGNS WNL AND CHARTED ON [facility]. SCD ON LLE. PATIENT REFUSED DINNER AFTER SEVERAL ATTEMPT. PATIENT ENCOURAGED FLUIDS. PATIENT INCONTIENT PERICARE AND BARRIER CREAM APPLIED NEEDED. PATIENT TURNED Q 2 HOURS. PATIENT HAS A MENDOZA WRAP ON RIGHT KNEE AND HEMOVAC. DRESSING ON THE RIGHT KNEE IS C/D/I. PATIENT HAS AN IMMOBILIZER ON RIGHT KNEE. HEMOVAC HAS SEROSANGUINEOUS FLUIDS. PATIENT ENCOURAGED TO USE IS. PATIENT IN BED ASLEEP AT THIS TIME BREATHING REGULAR AND UNLABOURED.
[2019-09-26 04:36] LABS: POTASSIUM 4.6 mmol/L (3.5-5.1)
[2019-09-26 04:53] LABS: HEMATOCRIT 30.6 % (42.0-52.0); HEMOGLOBIN 9.9 gm/dL (14.0-18.0)
[2019-09-26 07:56] VITALS: BP 128/63
[2019-09-26 19:07] VITALS: BP 152/53
--- NOTE | 2019-09-26 20:36 | NUR ---
PATIENT ALERT AND ORIENTED AND TENTATIVE ABOUT MOVEMENT IN BED AND PHYSICAL THERAPY. WITH PT ASSISTANCE, PT SAT ON EDGE OF BED. PATIENT IS NWB ON RIGHT LEG AND IS FIRST DAY POST-OP. 50ML OUTPUT OF HEMOVAC FOR DAY SHIFT. PATIENT GIVEN PERCOCET IN THE AM AND 10MG OXYCODONE IN AFTERNOON AND SLEPT FROM AFTER PT UNTIL DINNER TIME. BRIAN GRIFFITH, SON, AND SISTER AND DAUGHTER SAT IN ROOM MOST ALL THE DAY. SON [employer], "IT HAS BEEN COMEDY OF ERRORS DURING PATIENT'S STAY". NOTIFIED CHARGE NURSE AND PROVIDER OF PATIENT'S COMPLAINTS ABOUT ORDERS AND PAIN MEDICATION AND DIET. WHEN I SPOKE WITH SON AT SHIFT CHANGE, HE FELT THOUGH A LOT OF PROGRESS WAS MADE TODAY.
[2019-09-26 22:55] VITALS: BP 156/72
--- NOTE | 2019-09-27 03:35 | NUR ---
PATIENT AOX4 MAKES NEEDS KNOWN. PATIENT INCONTIENT THIS SHIFT PERICARE AND BARRIER CREAM APPLIED NEEDED. PAIN CONTROLLED THIS SHIFT. PATIENT HAS MENDOZA WRAP AND IMMOBILIZER ON RIGHT LEG, DRESSING C/D/I. HEMOVAC INTACT WITH MINIMUM DRAINAGE. LEFT LEG SCD ON.PATIENT CALM AND COOPERATIVE WITH MEDS AND CARE. FAMILY AT BEDIDE DURING MEDICATION ADMINISTRATION. CALL LIGHT AND PERSONAL BELONGING WITHIN RREACH. PATIENT IN BED ASLEEP AT THIS TIME BREATHING REGULAR AND UNLABOURED.
[2019-09-27 04:11] VITALS: BP 135/75
[2019-09-27 08:00] VITALS: BP 157/79
[2019-09-27 08:43] LABS: CALCIUM 8.6 mg/dL (8.5-10.1); CREATININE 1.5 mg/dL (0.7-1.3)
[2019-09-27 15:00] VITALS: BP 127/55
--- NOTE | 2019-09-27 18:11 | NUR ---
Assumed patient care at 0715. Patient's vital signs are stable. He continues to complain of uncontrolled pain. He has been given his Oxycodone prn as often as it can be given. Dr Washington here this am. She wrote orders for Ultram 50mg po BID; to start this evening. Dr Sharpe here this am to remove wound drain. He reported approximately 10cc of serosanginious drainage. This nurse changed dressing. Old dressing had moderate amount of serous drainage. No redness, edema, warmth and/or odor. Appetite has been poor today. Patient has been incontinent of bowel x's 2 today. Will continue to monitor. 2 very soft dark brown bowel movements.
[2019-09-27 19:30] VITALS: BP 126/63
--- NOTE | 2019-09-28 05:25 | NUR ---
Pt. rested quietly at intervals during the night when checked on during frequent rounds. He c/o right knee pain and scheduled tramadol was given (see emar) with some relief of pain noted. Right knee is in brace with aileen bandage in place. Incontinent of urine and chica care given. Pt. refused to be turned. Bed alarm is on.
[2019-09-28 08:39] VITALS: BP 144/75
--- NOTE | 2019-09-28 10:24 | NUR ---
PT HAD SURGERY SATURDAY AND IS NOW NWB RLE. CM MET WITH PT AT BEDSIDE THIS DAY AND PROVIDED [facility] SN[facility] LIST FOR REVIEW. CM INDICATED THAT CM WOULD BE HAPPY TO FOLLOW UP WITH PT AND FAMILY AND DISCUSS FURTHER. CM TO FOLLOW INDICATED WITH DC PLANNING.
[2019-09-28 10:57] LABS: HEMATOCRIT 21.9 % (42.0-52.0)
--- NOTE | 2019-09-28 11:24 | O ---
[facility] [place] [address] OPERATIVE REPORT Name: GRACIELA GRIFFITH Room #: 455-P ADM IN M.R.#: [id number] Admission: 09/18/19 Attend Phys: [place] Discharge: Date of : 38 Report #: [id number] THIS REPORT FOR: //name// CC: Los Milner PREOPERATIVE DIAGNOSIS: Infected right total knee. POSTOPERATIVE DIAGNOSIS: Infected right total knee. PROCEDURE: Removal of infected right total knee arthroplasty. SURGEON: Anoop Cueto MD INDICATIONS: This 78-year-old gentleman has a right total knee, which was placed several years ago. Recently, he was admitted to the hospital with a severe viral pneumonia as well as generalized sepsis with positive blood cultures growing strep pneumonia. Subsequently, he developed other areas of discomfort including the right knee. The right knee demonstrates swelling and tenderness and joint aspiration is positive for joint infection. I have performed an aggressive irrigation of the joint 48 hours ago, but at that point the joint fluid was obviously purulent and I feel the infection probably cannot be managed without a more aggressive debridement. Therefore, we have discussed either limited debridement with exchange of the poly spacers or complete debridement with removal of the implants. After lengthy discussion, the patient and family agree that removal of the entire implant is probably the best approach and holds the best likelihood of eradication of the infection. DESCRIPTION OF PROCEDURE: The patient was taken to the operating room where he was placed under general anesthesia. He is already on an antibiotic regimen. The right lower extremity was meticulously prepped and draped. A thigh tourniquet was applied and inflated to 300 mmHg. An anterior longitudinal skin incision made through his old surgical scar. This was carried through rather limited subcutaneous tissues and then along the medial retinaculum opening the joint. The patella was reflected laterally. Moderate seropurulent debris in the joint was noted. The components were not obviously loose or fractured, but it does seem to have significant synovitis with findings consistent with a joint infection. The components were removed with moderate difficulty using narrow osteotomes to chip the components away from the underlying bone. The femoral component was removed without a great loss of bone stock from the distal femur. The patella was also removed, preserving the patellar surface reasonably well. The tibial component was removed, but there was some loss of tibial bone stock in the tibial metaphyseal region, some bone was preserved at the natural joint surface, which would allow placement of a spacer and later followup total joint in the future if possible. All the cement was removed. The surfaces were thoroughly and copiously irrigated with pulsatile lavage. A precast joint spacer was selected. A large sized spacer with a femoral and tibial component [address] [address] OPERATIVE REPORT Name: NACHOGRACIELA H Room #: 455-P [facility] IN M.R.#: [id number] Admission: 09/18/19 Attend Phys: [place] Deal Discharge: Date of : 38 Report #: [id number] was selected. This is a gentamicin impregnated precast methyl methacrylate spacer. The fit and fill seemed to be acceptable and with a trial reduction the knee could be fully extended and flexed gently with satisfactory position of the components. Two packages of methyl methacrylate cement were then mixed including 4 grams of vancomycin. The cement was allowed to come to a nonsticky doughy consistency to avoid excessive bonding to the bone. This was then gently packed into the defect of the upper tibia and the tibial resurfacing spacer was then positioned appropriately. The femoral component was then also cemented into place, taking care to avoid excessive cement and avoiding any cement between the two components. The methyl methacrylate femoral component fit nicely and seemed to be in good position. Once the cement was starting to set up and clearly doughy, the knee could be positioned in full extension and seemed to be in good alignment and with good position of the components. Gentle pressure was held until the cement had fully hardened. Once the cement was firm, alignment, range of motion and stability were assessed and felt to be satisfactory. The temporary spacer seemed to be in good position and appeared to be stable. At this point, the tourniquet was deflated. There was moderate generalized oozing, which was controlled with pressure and irrigation and cautery. Two Hemovac drains were left in the wound exiting through separate stab incisions. The fascia was then closed with multiple #1 Vicryl sutures. Subcutaneous tissues were closed with 0 Monocryl. Skin was closed with skin min. Sterile dressing was applied and a knee immobilizer brace was placed holding the knee in neutral position. The patient was then awakened and returned to recovery room in good condition. <ELECTRONICALLY SIGNED> By: Anoop Cueto MD 09/28/19 1124 [id number] Anoop Cueto MD /zully
[2019-09-28 11:28] LABS: HEMOGLOBIN 7.3 gm/dL (14.0-18.0)
[2019-09-28 16:00] VITALS: BP 119/55
[2019-09-28 16:06] VITALS: BP 156/66; BP 160/80
--- NOTE | 2019-09-28 16:48 | NUR ---
PT IS ALERT AND ORIENTED X4. LUNGS ARE CLEAR TO DIMINISHED. FAMILY AT BEDSIDE FOR SUPPORT. FLY OPEN TO AIR AND INTACT NO DRAINAGE NOTED. RIGHT KNEE IS SWOLLEN SLIGHTLY WITH BRACE IN PLACE. INCONTINENT AT TIMES. Z GAURD TO COCCYX WITH TURNS. PLAN OF CARE DISCUSSED WITH PT AND EDUCATION GIVEN IN REGARDS TO CARE. 1 UNIT OF BLOOD INFUSING WITHOUT DIFFICULTY. WILL CONTINUE TO ASSESS AND MONITOR PER NURSING
[2019-09-28 19:37] VITALS: BP 155/64
[2019-09-29 00:06] VITALS: BP 157/72
--- NOTE | 2019-09-29 05:44 | NUR ---
PATIENTS CARES WERE ASSUMED AT SHIFT CHANGE. PATIENT WAS ASSESSED AND MEDS WERE PASSES. PATIENT HAD NO REQUEST THE SHIFT. HOURLY ROUNDS WERE DONE. THE BED IS IN A LOW AND LOCKED POSITION. THE BED ALARM IS ON.
--- NOTE | 2019-09-29 06:50 | NUR ---
PATIENT HAS BEEN REFUSING ALL BREATHING TREATMENTS OVER THE PAST 4 DAYS, CAN THE ORDERS PLEASE BE CHANGED TO EITHER PRN OR JUST DISCONTINUE IT.
[2019-09-29 07:53] VITALS: BP 160/71
--- NOTE | 2019-09-29 11:17 | NUR ---
pt care assumed at 0700. a&oX4. pt was seen by tubing machine tender to receive feedback on what locations pt farooq prefer for snf placement. pt. urinated and defecated on his knee brace it was washed and hanging to dry. wound cleans with ns and zguard applied. achs with no coverage needed. supplements on board with meals. pt. has a condom catheter in place. iv in place that flushes well, with no redness or edema. pt. son at bedside. updated and all questions answered. pt. not on isolation. tamiflu dosing compleeted. bed in low position, locked, and bed alarm in place.
[2019-09-29 12:06] VITALS: BP 168/71
--- NOTE | 2019-09-29 16:16 | NUR ---
CM FOLLOWED UP WITH PT AND SON AT BEDSIDE THIS AM. CM ASKED WHICH FACILITIES THEY WERE INTERESTED IN HAVING REFERRALS SENT TO FOR REVIEW FOR POSSIBLE ADMISSION. SON INDICATED THAT HE HAD ONLY GOTTEN THIS LIST THIS AM THAT HE HADN'T BEEN ABLE TO VISIT YESTERDAY. HE INDICATED HE WOULD REVIEW LIST AND LET CM KNOW PATRICIO. CM TO FOLLOW INDICATED WITH DC PLANNING.
[2019-09-29 16:47] VITALS: BP 168/71
[2019-09-30 00:46] VITALS: BP 131/53
--- NOTE | 2019-09-30 04:25 | NUR ---
PATIENT AOX3 MAKES NEEDS KNOWN. PATIENT INCONTINENT THIS SHIFT.PERICARE AND BARRIER CREAM APPLIED NEEDED. PATIENT RIGHT KNEE HAS FLY APPROXIMATLY NO DRAINAGE OR S/S OF INFECTION NOTED. PAIN CONTROLLED THIS SHIFT. SCD ON. PATIENT TURNED Q 2HOURS. CALL LIGHT AND PERSONAL ITEM WITHIN REACH. FALL PRECAUTION WITHIN REACH. PATIENT IN BED ASLEEP AT THIS TIME BREATHING REGULAR AND UNLABOURED.
[2019-09-30 07:25] VITALS: BP 165/78
[2019-09-30] MEDS ORDERED: OXYCODONE HCL10 MG PO (08:34)
[2019-09-30] MEDS ORDERED: ROCEPHIN 11 GM/1001 IV (08:34)
[2019-09-30] MEDS ORDERED: MIRALAX17 GM PO (08:35)
--- NOTE | 2019-09-30 09:51 | NUR ---
WOUND CARE FOLLOW UP; THE PATIENT IS REFUSING TO ALLOW MY ASSESSMENT. HE CONTINUES TO BE CONFUSED. DISCUSSED WITH RN. I WILL FOLLOW UP AT ANOTHER TIME.
--- NOTE | 2019-09-30 12:04 | NUR ---
CM HAD CALLED AND LEFT FOR PT'S SON REGARDING WHERE THE WANTED REFERRALS SENT. CM MET WITH PT AND SPOUSE AT BEDSIDE THIS AM AND THEY INDICATED THAT THE KIDS WERE DISCUSSING FACILITIES. CM MET WITH SON AND HE ASKED THAT REFERRALS BE SENT TO [facility], [facility], AND [facility] FOR REVIEW FOR POSSIBLE ADMISSION. CM TO FOLLOW INDICATED WITH DC PLANNING.
--- NOTE | 2019-09-30 13:41 | NUR ---
DISCHARGE PLANNING. PATIENT IS READY FOR DISCHARGE AND IS IN NEED OF 6 WEEKS OF IV ANTIBIOTIC TREATMENT, CEFTRIAXONE. PATIENT REFERRAL FAXED TO [facility] FOR POST ACUTE NEED. CALL PLACED TO MANUEL JULIO ADMISSIONS. ACCEPTING OF PATIENT AT DISCHARGE. WILL NEED TO SUBMIT FOR INSURANCE AUTH ONCE FAMILY CHOOSES FACILITY. PATIENT REFERRAL FAXED TO [facility]. CALL PLACED TO [facility]OL[facility] AND NIRANJAN HOPKINS ADMISSIONS TO NOTIFY. AWAITING RESPONSE. PATIENT REFERRAL FAXED TO [facility]. CALL PLACED TO POLLY IN ADMISSIONS TO NOTIFY. AWAITING RESPONSE. FOLLOWING.
[2019-09-30 15:12] VITALS: BP 134/50
--- NOTE | 2019-09-30 18:01 | NUR ---
Assumed patient care at 0715. Patient's vital signs have been stable throughout this shift. His blood sugars have been 83, 69 and 110; requiring no sliding scale insulin. He continues to be non-weight bearing on the right leg. He is supposed to wear a leg brace on right leg at all times. Leg brace was washed by hand due to incontinence. New leg brace has been ordered. Incision is well approximated; no edema, redness, drainage and/or odor. [place] are intact. Patient continues to complain of pain in right knee although it appears as if he has generalized pain; as any movement seems to hurt him. Patient and family have been educated that patient needs to be sitting up to consume his meals due to increased risk of aspiration. Patient does not like sitting up because this increases his back pain; he becomes angry and argues about this. Son, Samm is at bedside this evening. Samm to sign release form for Picc Line placement. Pain medication given prn as ordered with partial relief. Will report to on-coming nurse.
[2019-09-30 19:37] VITALS: BP 152/64
--- NOTE | 2019-10-01 03:46 | NUR ---
ASSUMED CARE OF PT AT 1900HRS. PT IS AOX3-4 WITH SOME INTERMITTENT CONFUSION. FALL PRECAUTION IN PLACE. PT TURNED Q2-3H. PT IS INCT. FAMILY HAD QUESTIONS ABOUT PICC LINE AND THOM COOPER TALKED WITH FAMILY. PICC LINE TO BE PLACED DAY OF DC PER ID. PT IS TO DC PENDING PLACEMENT. 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 PT REPORTED SOME PAIN. PT DENIED NAUSEA. NO VOMITING NOTED. PT WAS ABLE TO GET COMFORTABE AND SLEEP PART OF THE SHIFT. VSS AND NO S/S OF ACUTE DISTREE. WILL CONTINUE TO MONITOR.
[2019-10-01 07:31] VITALS: BP 133/55
--- NOTE | 2019-10-01 10:51 | NUR ---
PT A&OX3 FORGETFUL, VSS, PAIN IN RIGHT KNEE. PAIN MEDICATION GIVEN. PATIENT TOLERATING DIET. RIGHT KNEE, LAUNCHMAN WITH FLY, NO DRAINAGE, WARMTH OR INFLAMMAITON NOTED. PATIENT BREATHING IS REGULAR, LUNGS CLEAR/DIMINSHED, NO COUGH. NO SIGNS OF DISTRESS. WILL CONTINUE TO MONITOR.
[2019-10-01 14:34] VITALS: BP 123/61
--- NOTE | 2019-10-01 14:35 | NUR ---
AWAITING AUTH FROM [facility] FOR PT TO GO TO [facility]. CM FOLLOWING INDICATED WITH DC PLANNING.
--- NOTE | 2019-10-01 16:10 | NUR ---
[facility]ONG RECIEVED FOR PT TO DC TO [facility] THIS DAY. CM CALLED AND LEFT WITH PT'S SON BRIAN INDICATED THAT [facility] WAS ARRANGED FOR 1630. CHART COPY MADE. ORDERS FAXED. CM NOTIFIED PT'S TWO SONS AND SPOUSE. REPORT TO BE CALLED TO . NO OTHER CM INTERVENTION INDICATED. CASE CLOSED.
--- NOTE | 2019-10-01 16:49 | NUR ---
VASCULAR ACCESS CONSULTED FOR PICC LINE PRIOR TO DISCHARGE. ALISON BRACHIAL WAS WIDELY PATENT WITH USG, 4FR SL POWER PICC TRIMMED TO 38CM INSERTED TO 0CM. STAT CXR ORDERED. PT TOLERATED WELL. WALLET CARD GIVEN TO FAMILY
--- NOTE | 2019-10-01 17:00 | NUR ---
PICC PLACEMENT CONFIRMED WITH CXR, IN SVC. PICC RELEASED FOR IMMEDIATE USE PER PROTOCOL TO [facility]
== END 2019-10-01 17:10 | DRG 463 ==
LOC: ER 21:45 → 4W 09-18 01:15 → 2N 09-18 01:15 → EROBS 09-18 01:15 → 2N 09-18 06:35 → 4W 09-21 11:44
PROVIDERS: Emergency Medicine; Hospitalist; Internal Medicine Infectious Disease; Nurse Practitioner Family; Orthopaedic Surgery; Specialist; ADMIT Hospitalist
PROC: 0S9C3ZZ Drainage of Right Knee Joint, Percutaneous Approach (ICD-10-PCS; 2019-09-22)
PROC: 3E1U38Z Irrigation of Joints using Irrigating Substance, Percutaneous Approach (ICD-10-PCS; 2019-09-23)
PROC: 0SPC0JZ Removal of Synthetic Substitute from Right Knee Joint, Open Approach (ICD-10-PCS; principal; 2019-09-25)
PROC: 30233N1 Transfusion of Nonautologous Red Blood Cells into Peripheral Vein, Percutaneous Approach (ICD-10-PCS; 2019-09-28)
PROC: B548ZZA Ultrasonography of Superior Vena Cava, Guidance (ICD-10-PCS; 2019-10-01)
PROC: 02HV33Z Insertion of Infusion Device into Superior Vena Cava, Percutaneous Approach (ICD-10-PCS; 2019-10-01)
DX: T84.53XA Infection and inflammatory reaction due to internal right knee prosthesis, initial encounter (principal); A40.3 Sepsis due to Streptococcus pneumoniae; E43 Unspecified severe protein-calorie malnutrition; J69.0 Pneumonitis due to inhalation of food and vomit; J10.08 Influenza due to other identified influenza virus with other specified pneumonia; M00.9 Pyogenic arthritis, unspecified; N17.9 Acute kidney failure, unspecified; C90.01 Multiple myeloma in remission; M00.861 Arthritis due to other bacteria, right knee; E87.0 Hyperosmolality and hypernatremia; D62 Acute posthemorrhagic anemia; M46.26 Osteomyelitis of vertebra, lumbar region; Z96.652 Presence of left artificial knee joint; M06.9 Rheumatoid arthritis, unspecified; Z98.42 Cataract extraction status, left eye; E78.00 Pure hypercholesterolemia, unspecified; Z96.651 Presence of right artificial knee joint; E78.5 Hyperlipidemia, unspecified; G89.29 Other chronic pain; M54.9 Dorsalgia, unspecified; N18.3 Chronic kidney disease, stage 3 (moderate); E11.65 Type 2 diabetes mellitus with hyperglycemia; E11.22 Type 2 diabetes mellitus with diabetic chronic kidney disease; I12.9 Hypertensive chronic kidney disease with stage 1 through stage 4 chronic kidney disease, or unspecified chronic kidney disease; E11.69 Type 2 diabetes mellitus with other specified complication; B95.3 Streptococcus pneumoniae as the cause of diseases classified elsewhere; M13.0 Polyarthritis, unspecified; E87.6 Hypokalemia; K59.00 Constipation, unspecified; M25.461 Effusion, right knee; M48.061 Spinal stenosis, lumbar region without neurogenic claudication; Z85.46 Personal history of malignant neoplasm of prostate; Z86.73 Personal history of transient ischemic attack (TIA), and cerebral infarction without residual deficits; Z98.41 Cataract extraction status, right eye; Z88.8 Allergy status to other drugs, medicaments and biological substances; Z91.041 Radiographic dye allergy status; Z82.49 Family history of ischemic heart disease and other diseases of the circulatory system; Z68.26 Body mass index [BMI] 26.0-26.9, adult; Z79.899 Other long term (current) drug therapy; Y83.8 Other surgical procedures as the cause of abnormal reaction of the patient, or of later complication, without mention of misadventure at the time of the procedure; Y92.89 Other specified places as the place of occurrence of the external cause
CPT/HCPCS: 10040; 10081; 10194; 27000; 50010; 50101; 50415; 50954; 51038; 51130; 51225; 51412; 53078; 55389; 56525; 56527; 57095; 57103; 57180; 62110; 62900; 70005

== ENCOUNTER → 2020-10-27 | Outpatient (CLI) | payer OTHER ==
[~2020-10-27] MED LIST changes: +MIRALAX17 GM PO; +NORCO 5-325 TA1 EAC1 PO; +OXYCODONE HCL10 MG PO; +ROCEPHIN 11 GM/1001 IV
--- NOTE | 2020-10-28 10:25 | 2DMMODE ---
[facility] [place] [address] 2 D/M-MODE ECHOCARDIOGRAM Name: GRACIELA GRIFFITH Room #: REG KIRBY Knott.#: [id number] Admission: 10/27/20 Attend Phys: Elissa Meehan MD, Discharge: Date of : 38 Report #: [id number] THIS REPORT FOR: cc: Callie De MD, Melanie MD Blick,Anoop Castellanos MD [facility] ~ APPROVED REPORT Study performed: 10/27/2020 10:26:14 EXAM: Comprehensive 2D, Doppler, and color-flow Echocardiogram Patient Location: Out-Patient Status: routine BSA: 2.09 HR: 64 bpm BP: 134/76 mmHg Rhythm: NSR Other Information Study Quality: Excellent Indications CAD, HTN, murmur. 2D Dimensions RVDd: 39.00 mm IVSd: 14.79 (7-11mm) LVOT Diam: 21.34 (18-24mm) LVDd: 47.31 mm PWd: 13.22 (7-11mm) Ascending Ao: 38.09 (22-36mm) LVDs: 32.94 (25-40mm) Aortic Root: 41.69 mm Volumes Left Atrial Volume (Systole) Single Plane 4CH: 67.58 mL Single Plane 2CH: 68.13 mL LA ESV Index: 35.00 mL/m2 Aortic Valve AoV Peak Rayray.: 1.50 m/s AO Peak Gr.: 9.03 mmHg LVOT Max P.22 mmHg LVOT Max V: 0.90 m/s YASSINE Vmax: 2.14 cm2 [facility] [address] [place] [address] 2 D/M-MODE ECHOCARDIOGRAM Name: GRACIELA GRIFFITH Room #: REG [facility]#: [id number] Admission: 10/27/20 Attend Phys: Elissa Meehan, Discharge: Date of : 38 Report #: [id number] Mitral Valve E/A Ratio: 0.6 MV Decel. Time: 273.08 ms MV E Max Rayray.: 0.88 m/s MV A Rayray.: 1.37 m/s MV PHT: 79.19 ms IVRT: 110.73 ms Pulmonary Valve PV Peak Rayray.: 0.93 m/s PV Peak Gr.: 3.48 mmHg Pulmonary Vein P Vein S: 0.45 m/s P Vein D: 0.32 m/s P Vein S/D Ratio: 1.41 Tricuspid Valve TR Peak Rayray.: 3.00 m/s RAP Estimate: 5.00 mmHg TR Peak Gr.: 36.07 mmHg PA Pressure: 41.00 mmHg Left Ventricle The left ventricle is normal size. There is normal LV segmental wall motion. Moderate left ventricular hypertrophy. Left ventricular systolic function is normal. LVEF is 60%. Mild diastolic dysfunction is present (impaired relaxation pattern). Right Ventricle The right ventricle is normal size. The right ventricular systolic function is normal. Atria Left atrium is mildly dilated. The right atrium size is normal. Aortic Valve The aortic valve is normal in structure; mildly calcified leaflets. mild aortic regurgitation. There is no aortic valvular stenosis. Mitral Valve Mitral valve leaflets are mildly thickened. Mild mitral regurgitation. No evidence of mitral valve stenosis. Tricuspid Valve The tricuspid valve is normal in structure. Mild tricuspid [facility] [place] [address] 2 D/M-MODE ECHOCARDIOGRAM Name: CAMDEN GRIFFITHT Marty Room #: REG [facility].#: [id number] Admission: 10/27/20 Attend Phys: Elissa Meehan, Discharge: Date of : 38 Report #: [id number] regurgitation. Estimated PAP is 40-45mmHg. Pulmonic Valve The pulmonary valve is normal in structure. Mild pulmonic regurgitation. Great Vessels Aortic root is dilated at 4.2cm. The ascending aorta is borderline dilated. IVC is normal in size and collapses >50% with inspiration. Pericardium There is no pericardial effusion. <Conclusion> LVEF is 60%. Moderate left ventricular hypertrophy. Left atrium is mildly dilated. mild aortic regurgitation. Mild mitral regurgitation. Mild tricuspid regurgitation. Estimated PAP is 40-45mmHg. <ELECTRONICALLY SIGNED> By: Anoop Emery MD, [facility] 10/28/20 1025 24 Anoop Emery MD, FACC /INF
== END ==
LOC: NUC 09:29
PROVIDERS: ATTEND Internal Medicine
DX: I08.8 Other rheumatic multiple valve diseases (principal); I25.10 Atherosclerotic heart disease of native coronary artery without angina pectoris; I10 Essential (primary) hypertension